=== PATIENT | female | born 1940 | race Caucasian/White ===

== ENCOUNTER 2020-01-16 08:05 | Emergency (ER) | payer MEDICARE, SELFPAY ==
[2020-01-16] VITALS (7 sets, daily range): BP systolic 103–126; BP diastolic 56–74; PULSE 60–89; RESP 14–24; TEMP 36.7; O2SAT 94–97
--- NOTE | ~2020-01-16 | XR_ITS ---
EXAMINATION: XR knee LT min 4V DATE: 01/16/2020 09:21 INDICATION: Left knee pain. TECHNIQUE: 4 views of left knee were obtained. COMPARISON: Left knee radiographs 12/09/2015 FINDINGS: Bone alignment is normal. No fracture. There is severe osteoarthritis of medial compartment and mild osteoarthritis of lateral and patellofemoral compartments. There is heterotopic ossificatio n in the area of medial collateral ligament. No knee joint effusion. IMPRESSION: 1. Severe left knee osteoarthritis. Reviewed, dictated and finalized at location A.
--- NOTE | ~2020-01-16 | XR_ITS ---
EXAMINATION: XR foot RT min 3V DATE: 01/16/2020 09:21 INDICATION: Right foot pain. Fall. TECHNIQUE: 4 views of right foot were obtained. COMPARISON: None. FINDINGS: There is dorsiflexion of the metatarsophalangeal joints and flexion of the interphalangeal joints of the lesser toes. There is moderate hallux valgus. There is hypertrophy of medial aspect of head of first metatarsal. No fracture. There is mild osteoarthritis of first metatarsophalangeal join t and a naviculocuneiform joint. There is an enthesophyte at plantar aspect of calcaneal tuberosity. IMPRESSION: 1. Mild polyarticular osteoarthritis. 2. Moderate hallux valgus. Reviewed, dictated and finalized at location A.
--- NOTE | ~2020-01-16 | XR_ITS ---
EXAMINATION: XR knee RT min 4V DATE: 01/16/2020 09:21 INDICATION: Right knee pain. TECHNIQUE: 4 views of right knee were obtained. COMPARISON: None. FINDINGS: Bone alignment is normal. No fracture. There is mild tricompartmental osteoarthritis. No kn ee joint effusion. IMPRESSION: 1. Mild right knee osteoarthritis. Reviewed, dictated and finalized at location A.
--- NOTE | ~2020-01-16 | XR_ITS ---
EXAMINATION: XR hip RT 2V w AP pelvis DATE: 01/16/2020 09:21 INDICATION: Right hip pain. Fall. TECHNIQUE: An anteroposterior view of the pelvis and 2 views of right hip were obtained. COMPARISON: CT abdomen and pelvis 01/08/2019 FINDINGS: There is dextroscoliosis and moderate spondylosis of lower lumbar spine. No fracture. There is mild osteoarthritis of the hips. Osteitis pubis is noted. Power overlie the pelvis. IMPRESSION: 1. Mild osteoarthritis of the hips. Reviewed, dictated and finalized at location A.
--- NOTE | ~2020-01-16 | CT_ITS ---
EXAMINATION: CT brain wo con INDICATION: Head injury COMPARISON: None TECHNIQUE: Standard unenhanced head CT. The dose-length product (DLP) was 529.67 mGy-cm. The mA was a djusted according to patient size. Iterative reconstruction technique was employed. FINDINGS: There is a 6 mm parafalcine hyperdensity to the right of midline on axial image 36. There i s no acute intraparenchymal hemorrhage. No evidence of mass lesion. No evidence of acute infarction. There is mild periventricular and subcortical hypodensity probably related to small vessel ischemic d isease. There is mild prominence of the sulci and ventricles related to cerebral atrophy. Intracrania l calcified cerebral atherosclerosis is noted. There is no mass effect or midline shift. The orbits a nd soft tissues are unremarkable. There is mild mucosal thickening of the paranasal sinuses. IMPRESSION: 1. 6 mm parafalcine subdural hematoma to the right of midline. These findings were discussed with Dr. Margarita Bro MD in the Emergency Department at 0921 hours on 01/16/2020. 2. Age related findings. Reviewed, dictated and finalized at location A. IMPRESSION: 1. 6 mm parafalcine subdural hematoma to the right of midline. These findings w ere discussed with Dr. Margarita Bro MD in the Emergency Department at 0921 hours on 01/16/2020. 2. Age related findings.
--- NOTE | ~2020-01-16 | XR_ITS ---
EXAMINATION: XR chest 1V DATE: 01/16/2020 09:21 INDICATION: Fall. TECHNIQUE: A single frontal view of the chest was obtained. COMPARISON: Chest single view 03/17/2020 FINDINGS: There is mild atelectasis in left lower lung zone. No pleural effusion or pneumothorax. The heart size is normal. IMPRESSION: 1. Mild atelectasis in left lower lung zone. Reviewed, dictated and finalized at location A.
--- NOTE | 2020-01-16 08:17 | ED.FALL ---
HPI - Fall General Chief Complaint: Fall Stated Complaint: R HIP PAIN S/P FALL Time Seen by Provider: 01/16/20 08:07 Source: patient Mode of arrival: EMS Limitations: no limitations History of Present Illness HPI Narrative: This patient is an 79 year old female who presents for evaluation of right hip pain s/p fall. She fell yesterday afternoon around 1230 am. She states she fell onto grass and a metal drain, and she was unable to get herself up. She has not walked since her fall, and she states she has been crawling around her house since yesterday. She called family this morning and an ambulance brought patient to ER. She complains of right hip pain and right foot pain when she attempts to bear weight. She has no pain at rest but only pain when she moves her leg. She does also report hitting her head yesterday but no LOC. Even though she had no loss of consciousness she reports nausea. She denies taking anticoagulation. complaint: fall Related Data Home Medications Medication Instructions Recorded Confirmed Lasix 01/16/20 losartan 01/16/20 metronidazole 1 applic TOPICAL DAILY 01/16/20 montelukast 10 mg PO DAILY 01/16/20 potassium chloride 10 meq PO DAILY 01/16/20 propranolol 120 mg PO DAILY 01/16/20 trazodone 01/16/20 Allergies Allergy/AdvReac Type Severity Reaction Status Date / Time Cephalosporins Allergy Mild Swelling Verified 01/16/20 08:11 cefaclor Allergy Unknown Unknown Verified 01/16/20 08:11 Penicillins Allergy Unknown Unknown Verified 01/16/20 08:11 Sulfa (Sulfonamide Allergy Unknown Unknown Verified 01/16/20 08:11 Antibiotics) Review of Systems Review of Systems: All systems reviewed & are unremarkable except as noted in HPI and below Constitutional: Constitutional: Denies chills and Denies fever(s) Eyes: Eyes: Reports no additional eye complaints Cardiovascular: Cardiovascular: Denies chest pain and Denies radiating jaw, neck or arm pain Respiratory: Respiratory: Denies cough, Denies dyspnea and Denies wheezing Gastrointestinal: Gastrointestinal: Denies abdominal pain, Reports nausea and Denies vomiting Musculoskeletal: Musculoskeletal: Denies back pain PMF Past Medical History Medical History (Updated 01/16/20 @ 10:00 by Margarita Bro MD) CHF (congestive heart failure) COPD (chronic obstructive pulmonary disease) Hypertension Surgical History Surgical History (Updated 01/16/20 @ 08:18 by Margarita Bro MD) H/O: hysterectomy Family History Family History (Updated 04/22/15 @ 08:50 by DOCTOR UNKNOWN) Other Cerebrovascular accident Social History Social History (Updated 01/16/20 @ 08:18 by Margarita Bro MD) Smoking status: Never smoker Alcohol intake: never Exam Narrative: Exam Narrative: GENERAL: Well-appearing, well-nourished, and in no acute distress. HEAD: Normocephalic, atraumatic EYES: PERRLA and EOMI, conjunctiva clear without discharge EARS: TM's clear bilaterally without erythema or dullness NOSE: Nares clear, no rhinorrhea or epistaxis THROAT:Mucous membranes moist, Oropharynx normal without erythema, exudate, peritonsillar swelling or fluctuance NECK: Supple, without lymphadenopathy or mass, no midline cervical tenderness RESPIRATORY: No respiratory distress, Airway patent, Respirations non-labored, Clear to auscultation without rales, rhonchi or wheeze HEART: Regular rate and rhythm. No murmur heard. Normal peripheral pulses. ABDOMEN: Soft, nontender, nondistended, normal active bowel sounds. No masses. No rebound or guarding, No organomegaly. EXTREMITIES: bilateral pedal and lower leg edema, pain with ROM to right hip, mild tenderness to right hip. TTP left knee, no shortnening SKIN: Warm, dry, normal color without rash NEURO: Alert and oriented x3. CN 2-12 grossly intact. No focal deficits. PSYCH: Normal mood and affect. Course Reevaluation(s) Reevaluation #1: I have discussed with patient th
[2020-01-16 08:39] LABS: Basophils Absolute Auto 0.1 K/mm3 (0.0-0.1); Basophils Percent Auto 0.6 % (0.2-1.2); Eosinophils Absolute Auto 0.3 K/mm3 (0-0.3); Eosinophils Percent Auto 2.1 % (0-4.4); Hematocrit 42.4 % (37.0-47.0); Hemoglobin 13.8 g/dL (12.0-15.0); Immature Granulocyte Absolute 0.05 K/mm3 (0.00-0.031); Immature Granulocyte Percent A 0.4 % (0-0.5); Lymphocytes Percent Auto 5.6 % (18.3-44.2); Mean Corpuscular HGB Conc 32.5 g/dl (32-36); Mean Corpuscular Hemoglobin 29.7 pg (26-34); Mean Corpuscular Volume 91.2 fl (80-100); Mean Platelet Volume 9.2 fl (7.4-10.4); Monocytes Percent Auto 8.2 % (2.6-8.5); Neutrophils Absolute Auto 10.5 K/mm3 (1.3-6.7); Neutrophils Percent Auto 83.1 % (45.5-73.1); Platelet Count Result 213 k/mm3 (150-375); Red Blood Count 4.65 M/mm3 (4.2-5.4); Red Cell Distribution Width 13.7 % (11.5-14.5); White Blood Count 12.6 K/mm3 (4.5-10.0)
[2020-01-16 08:49] LABS: Prothrombin Time 13.3 Seconds (11.1-14.7)
[2020-01-16 08:50] LABS: Alanine Aminotransferase 24 U/L (4-35); Albumin Level 4.4 g/dL (3.5-5.1); Alkaline Phosphatase 121 U/L (38-126); Aspartate Amino Transferase 45 U/L (14-36); Bilirubin,Total 1.9 mg/dL (0.2-1.3); Blood Urea Nitrogen 13 mg/dL (7-17); Calcium 9.7 mg/dL (8.4-10.2); Carbon Dioxide 28 mmol/L (22-30); Chloride 102 mmol/L (98-107); Estimated CRCL calculation 50 ml/min; Estimated Glomerular Filt Rate > 60; Glucose 114 mg/dL (65-105); Partial Thromboplastin Time 34.9 SECONDS (22.3-36.8); Potassium 4.3 mmol/L (3.4-5.0); Sodium 135 mmol/L (137-145)
--- NOTE | 2020-01-16 08:55 | PC.NURSE ---
CALLED LAB AND ADDED ON NEW ORDER CK.
[2020-01-16 09:08] LABS: Creatine Kinase 220 U/L (30-135)
[2020-01-16 09:46] LABS: Add Urine Microscopic? YES; Appearance Urine Clear (Clear); Bacteria Urine 4+ /hpf; Bilirubin Urine Negative (Negative); Blood Urine 2+ (Negative); Color Urine Yellow (Yellow); Glucose Urine UA Negative (Negative); Ketones Urine 1+ mg/dL (Negative); Leukocyte Esterase Ur Negative LEU/UL (Negative); Mucus Urine Rare /lpf; Nitrate Urine Positive (Negative); Protein Urine Negative (Negative); RBC Urine 0-2 /hpf (0-2); Urobilinogen Urine Negative mg/dL (<2.0); WBC Urine 0-3 /hpf
== END 2020-01-16 10:20 | disposition short-term general hospital (02) ==
PROVIDERS: Emergency Provider General Practice; PCP Family Medicine
DX: S06.5X9A Traumatic subdural hemorrhage with loss of consciousness of unspecified duration, initial encounter (principal); I11.0 Hypertensive heart disease with heart failure; I50.9 Heart failure, unspecified; J44.9 Chronic obstructive pulmonary disease, unspecified; M19.90 Unspecified osteoarthritis, unspecified site; W01.0XXA Fall on same level from slipping, tripping and stumbling without subsequent striking against object, initial encounter
CPT/HCPCS: 36415; 51701; 70450; 71045; 73502; 73564; 73630; 80053; 81001; 82550; 85025; 85610; 85730; 99285

== ENCOUNTER 2020-02-02 13:38 | Observation (INO) | payer MEDICARE, SELFPAY ==
[2020-02-02 13:37] VITALS: BP 132/65; PULSE 78; RESP 18; TEMP 36.8; O2SAT 100
--- NOTE | 2020-02-02 13:41 | ED.GIBLEED ---
HPI - GI Bleed General Chief complaint: GI Bleed Stated complaint: Rectal bleed History of Present Illness HPI Narrative: Large amount of bright red blood and clots per rectum starting about an hour before arrival. She reports diarrhea for the past 2 days prior. No dark or grossly bloody stools. She has had a previous GI bleed thought to be due to hemorrhoids. Related Data Home Medications Medication Instructions Recorded Confirmed Lasix 01/16/20 losartan 01/16/20 metronidazole 1 applic TOPICAL DAILY 01/16/20 montelukast 10 mg PO DAILY 01/16/20 potassium chloride 10 meq PO DAILY 01/16/20 propranolol 120 mg PO DAILY 01/16/20 trazodone 01/16/20 Allergies Allergy/AdvReac Type Severity Reaction Status Date / Time Cephalosporins Allergy Mild Swelling Verified 01/16/20 08:11 cefaclor Allergy Unknown Unknown Verified 01/16/20 08:11 Penicillins Allergy Unknown Unknown Verified 01/16/20 08:11 Sulfa (Sulfonamide Allergy Unknown Unknown Verified 01/16/20 08:11 Antibiotics) Review of Systems Review of Systems: All systems reviewed & are unremarkable except as noted in HPI and below Constitutional: Constitutional: Denies chills and Denies fever(s) Cardiovascular: Cardiovascular: Denies chest pain Respiratory: Respiratory: Denies dyspnea Gastrointestinal: Gastrointestinal: Denies abdominal pain, Denies nausea and Denies vomiting Genitourinary: Genitourinary: Denies hematuria Neurologic: Denies dizziness, Denies numbness and Denies weakness PMFSH Past Medical History Medical History CHF (congestive heart failure) COPD (chronic obstructive pulmonary disease) Hypertension Surgical History Surgical History H/O: hysterectomy Family History Family History Other Cerebrovascular accident Social History Social History Smoking status: Never smoker Alcohol intake: never Exam Const: General: healthy appearing, no acute distress and alert Orientation/consciousness: patient oriented x3 HENMT: Head: normal to inspection Neck: Neck: normal visual inspection and no lymphadenopathy Chest: Chest palpation & inspection: no tenderness Resp: Effort & Inspection: normal respiratory effort Auscultation: clear to auscultation bilaterally, no rales, no rhonchi and no wheezes Cardio: Jugular venous distension: no JVD Rate: regular rate Rhythm: regular rhythm Heart sounds: no murmurs GI: Inspection: non-distended GI Palp: Yes Soft to palpation and No Tenderness to palpation present (GI) Other: multiple large external hemorrhoids with minimal active blleding Skin: General skin exam: normal color Neuro: General: patient oriented x3 and moves all extremities Speech: normal speech Extrem: General: no edema Psych: Appearance: well kempt Affect: normal affect MDM - GI Bleed MDM Narrative Medical decision making narrative: Labs stable. Minimal active bleeding. Will admit her for observation and recheck of H/h. Dr. Pandya consulted. Differential Diagnosis Differential diagnosis: Likely hemorrhoids Medical Records Attestation: I reviewed the patient's medical records. Lab Data Attestation: I reviewed the patient's lab results. Imaging Data Attestation: I personally reviewed and interpreted this imaging study as follows: Discharge Plan Discharge Clinical Impression: Hemorrhoids, Acute lower GI bleeding Patient Disposition: Still a Patient Condition: Stable
[2020-02-02 14:01] LABS: Basophils Absolute Auto 0.1 K/mm3 (0.0-0.1); Basophils Percent Auto 0.8 % (0.2-1.2); Eosinophils Absolute Auto 0.2 K/mm3 (0-0.3); Eosinophils Percent Auto 2.4 % (0-4.4); Hematocrit 41.9 % (37.0-47.0); Hemoglobin 13.5 g/dL (12.0-15.0); Immature Granulocyte Absolute 0.04 K/mm3 (0.00-0.031); Immature Granulocyte Percent A 0.4 % (0-0.5); Lymphocytes Absolute Auto 1.08 K/mm3 (0.9-3.2); Lymphocytes Percent Auto 11.8 % (18.3-44.2); Mean Corpuscular HGB Conc 32.2 g/dl (32-36); Mean Corpuscular Hemoglobin 29.2 pg (26-34); Mean Corpuscular Volume 90.7 fl (80-100); Mean Platelet Volume 9.3 fl (7.4-10.4); Monocytes Absolute Auto 0.8 K/mm3 (0.1-0.6); Neutrophils Absolute Auto 6.9 K/mm3 (1.3-6.7); Neutrophils Percent Auto 75.6 % (45.5-73.1); Platelet Count Result 311 k/mm3 (150-375); Red Blood Count 4.62 M/mm3 (4.2-5.4); Red Cell Distribution Width 13.6 % (11.5-14.5); White Blood Count 9.2 K/mm3 (4.5-10.0)
[2020-02-02 14:07] LABS: Partial Thromboplastin Time 30.9 SECONDS (22.3-36.8); Prothrombin Time 12.8 Seconds (11.1-14.7)
[2020-02-02 14:10] LABS: Alanine Aminotransferase 16 U/L (4-35); Albumin Level 4.1 g/dL (3.5-5.1); Alkaline Phosphatase 194 U/L (38-126); Aspartate Amino Transferase 31 U/L (14-36); Bilirubin,Total 0.5 mg/dL (0.2-1.3); Blood Urea Nitrogen 19 mg/dL (7-17); Calcium 9.3 mg/dL (8.4-10.2); Carbon Dioxide 28 mmol/L (22-30); Chloride 103 mmol/L (98-107); Estimated CRCL calculation 50 ml/min; Estimated Glomerular Filt Rate > 60; Glucose 114 mg/dL (65-105); Sodium 138 mmol/L (137-145)
[2020-02-02 14:58] VITALS: BP 100/43; PULSE 85; RESP 15; O2SAT 100
[2020-02-02 16:12] VITALS: BP 103/38; PULSE 71; RESP 17; TEMP 36.4; O2SAT 98
--- NOTE | 2020-02-02 16:40 | ADMGEN ---
This patient, Dionne Flores, was admitted to Medical Room 342-01. Patient/family oriented to hospital policies and general routines including ID bracelet, bed and alarms, visiting hours, pain management, procedures, bathroom and other care routines, personal items, smoking policy, room service/diet, and visiting hours. Valuables list has been completed. Information on how to activate the Rapid Response Team has been discussed. Patient/Family are encouraged to report perceived risks to care and to ask questions if they do not understand what they are told or what they should do.
[2020-02-02 16:46] VITALS: BMI 33.7
[2020-02-02 16:48] VITALS: BP 151/62; PULSE 74; RESP 12; TEMP 36.6; O2SAT 100
[2020-02-02 17:04] LABS: Hematocrit 40.5 % (37.0-47.0)
[2020-02-02] MEDS: LACTATED RINGERS 1,000 ML 125 ML IV CONT (17:17)
--- NOTE | 2020-02-02 18:10 | PM.IMHP ---
H&P: HPI History of Present Illness Chief complaint: lower gi bleed Narrative: Dionne Flores is a 79 year old female whom I have had the pleasure of meeting on 09/10/2018 which she also had bloody stools. At that time the patient was found to have bleeding hemorrhoids and was discharged to home without any intervention. The patient has had multiple colon polyps removed and had a right hemo colectomy approximately 3 years ago for mass which was found to be benign. She also had a diagnosis of lymphoma and was told that she is in remission. Patient's last EGD and colonoscopy was performed by Dr. Greenwood at [facility] December 23, 2018. Patient does occasionally have problems with bleeding hemorrhoids. She has seen Dr. Canales in the past. She is a former patient of Dr. Zuniga and removed herself from his services. Patient's H&H is 13.5 and 41.9. Her H&H on 01/16/2020 was noted to be 13.8 and 42.4. Patient's repeat H&H today was 13.0 and 40.5. Patient woke up this morning with a large amount of bright red blood in her stool which occurred approximately 1 hour prior to arrival in the emergency room. She stated prior to that she had diarrhea for about 2 days but did notice any blood until today. Patient has not taking anything for her hemorrhoids. Patient denies any shortness of breath or dizziness. Patient stated that she feels fine now. Dr. Pandya has been consulted. Patient was given IV fluids. Serial H&Hs have been ordered. Patient is being admitted to medical floor for lower GI bleed. Date of service 02/02/2020 Review of Systems Review of Systems: All systems reviewed & are unremarkable except as noted in HPI and below Constitutional: Constitutional: Reports as per HPI and Reports no additional constitutional complaints Eyes: Eyes: Reports as per HPI and Reports no additional eye complaints ENT: Reports system reviewed and no additional complaints, except as documented and Reports Normal hearing present Cardiovascular: Cardiovascular: Reports no additional cardiovascular complaints Respiratory: Respiratory: Reports no additional respiratory complaints and Reports no additional respiratory complaints Gastrointestinal: Gastrointestinal: Reports as per HPI and Reports no additional gastrointestinal complaints Musculoskeletal: Musculoskeletal: Reports no additional musculoskeletal complaints Integumentary/Breasts: Skin/Breast: Reports system reviewed and no additional complaints, except as docu and Reports as per HPI Neurologic: Reports system reviewed and no additional complaints, except as documented, Reports as per HPI and Reports Normal hearing present Psychiatric: Psychiatric: Reports no additional psychiatric complaints and Reports as per HPI Endocrine: Endocrine: Reports no additional endocrine complaints Hematologic/Lymphatic: Hematologic/Lymphatic: Reports no additional hematologic/lymphatic complaints Allergic/Immunologic: Allergic/Immunologic: Reports no additional allergic/immunologic complaints [facility] Past Medical History Medical History (Updated 02/02/20 @ 18:35 by Radha Harp NP) Abnormal colonoscopy May of last year Anxiety and depression CHF (congestive heart failure) COPD (chronic obstructive pulmonary disease) Hypertension Lymphoma Now reported as being in remission Osteoporosis Rosacea Surgical History Surgical History (Updated 02/02/20 @ 18:24 by Radha Harp NP) H/O bilateral cataract extraction 1 in 2008 and 2nd 1 in 2010 H/O cardiac catheterization H/O lumpectomy H/O rectal polypectomy H/O right hemicolectomy H/O: hysterectomy 1987 History of ear surgery Right here plastic surgery due to a pressure area on the top of her right ear. History of esophagogastroduodenoscopy (EGD) Approximately 1 year Hx of cholecystectomy 2004 Family History Family History (Updated 02/02/20 @ 18:31 by Radha Harp NP) Father Hypertension Cerebrovascular accident Diabetes oralia
[2020-02-02 21:11] VITALS: BP 108/60; PULSE 77; RESP 16; TEMP 36.3; O2SAT 97
[2020-02-02] MEDS: traZODone HCL 50 MG TABLET PO (21:15)
[2020-02-02 23:03] LABS: Hematocrit 35.7 % (37.0-47.0); Hemoglobin 11.7 g/dL (12.0-15.0)
[2020-02-03] VITALS (7 sets, daily range): BP systolic 113–128; BP diastolic 52–65; PULSE 65–85; RESP 14–16; TEMP 36.2–36.9; O2SAT 96–100
[2020-02-03] MEDS: LACTATED RINGERS 1,000 ML 125 ML IV CONT ×2 (01:32→10:11)
[2020-02-03 03:16] LABS: Hematocrit 35.4 % (37.0-47.0); Hemoglobin 11.3 g/dL (12.0-15.0)
[2020-02-03 03:31] LABS: Alanine Aminotransferase 13 U/L (4-35); Albumin Level 3.1 g/dL (3.5-5.1); Alkaline Phosphatase 147 U/L (38-126); Aspartate Amino Transferase 23 U/L (14-36); Bilirubin,Total 0.6 mg/dL (0.2-1.3); Blood Urea Nitrogen 13 mg/dL (7-17); CRP 1.6 mg/dL (<1.0); Calcium 8.8 mg/dL (8.4-10.2); Carbon Dioxide 27 mmol/L (22-30); Chloride 105 mmol/L (98-107); Estimated CRCL calculation 57 ml/min; Estimated Glomerular Filt Rate > 60; Glucose 94 mg/dL (65-105); Magnesium 1.8 mg/dL (1.6-2.3); Potassium 3.4 mmol/L (3.4-5.0); Sodium 138 mmol/L (137-145)
[2020-02-03] MEDS: PROPRANOLOL HCL 20 MG TABLET 60 MG PO ×2 (08:54→21:16)
[2020-02-03] MEDS: MONTELUKAST SODIUM 10 MG TABLET PO (08:55)
[2020-02-03] MEDS: MULTIVITAMINS THERAPEUTIC TAB (*BKC) 1 TABLET PO (08:55)
[2020-02-03] MEDS: LOSARTAN POTASSIUM 25 MG TABLET PO (08:55)
[2020-02-03] MEDS: FUROSEMIDE 20 MG TABLET PO (08:55)
--- NOTE | 2020-02-03 10:30 | PM.IMPN ---
Progress Note: A&P Assessment and Plan (1) Acute lower GI bleeding: Code(s): K92.2 - Gastrointestinal hemorrhage, unspecified Status: Acute Assessment and Plan: Patient states her bleeding has stopped today; she did not notice blood in stool/melena this morning. H&H dropped to 11.3/35.4 today. GI consulted and appreciate input. She has had a history of internal & external hemorrhoids with apparent bleed last year. She is not on any a/c at this time. VSS Continue to monitor Await further input from GI Monitor H&H again this morning and likely tomorrow if she stays (2) Anxiety and depression: Code(s): F41.9 - Anxiety disorder, unspecified; F32.9 - Major depressive disorder, single episode, unspecified Status: Chronic Assessment and Plan: No acute issues Continue trazodone. (3) Rosacea: Code(s): L71.9 - Rosacea, unspecified Status: Chronic Assessment and Plan: Not not currently having any issues. She has been on Flagyl in the past. (4) COPD (chronic obstructive pulmonary disease): Code(s): J44.9 - Chronic obstructive pulmonary disease, unspecified Status: Chronic Assessment and Plan: Not currently having any issues. Continue with Singulair. (5) CHF (congestive heart failure): Code(s): I50.9 - Heart failure, unspecified Status: Chronic Assessment and Plan: No acute issues. Appears euvolemic Continue with Lasix and losartan. Stop IVF (6) Lymphoma: Code(s): C85.90 - Non-Hodgkin lymphoma, unspecified, unspecified site Status: Acute Assessment and Plan: Reported as being in remission Subjective Date/time seen: 02/03/20 10:30 Interval history: Patient is a 79 yo F with history of CHF, COPD, HTN, and reported previous GI bleed thought to be due to hemorrhoids who is here for evaluation for BRBPR. Patient states her bleeding has stopped. She had a BM today and had not noticed any blood/black stools this morning. No other signs/symptoms of bleeding. She has no other complaints. Denies f/c/s,headaches, dizziness/lightheadedness particularly with standing/ambulating, changes in v/h, cp/palpitations, sob/cough, n/v/d/c, abd pain, dysuria, hematuria, cloudy urine, calf pain/swelling. Review of Systems Review of Systems: All systems reviewed & are unremarkable except as noted in HPI and below Exam Narrative: Exam Narrative: Patient sitting upright in chair at time of visit Const: General: cooperative, comfortable, no acute distress, well developed, alert and ill appearing chronically Nutritional Appearance: well nourished and obese Orientation/consciousness: patient oriented x3 HENMT: Head: normocephalic and atraumatic General nose exam: Normal nares present Face and sinus: face symmetric Mouth: Yes moist mucous membranes Eyes: General: appearance normal, both eyes and all related structures EOM: EOMs intact bilaterally Neck: Neck: trachea midline and supple Resp: Effort & Inspection: normal respiratory effort Auscultation: clear to auscultation bilaterally Cardio: Rate: regular rate Rhythm: regular rhythm GI: Inspection: non-distended and obesity GI Palp: No abdominal tenderness and Yes Soft to palpation Auscultation: other (BS present) Skin: General skin exam: normal color and no rashes or lesions noted Neuro: General: patient oriented x3, moves all extremities and no focal motor deficits Speech: normal speech Extrem: Right lower extremity: edema Left lower extremity: edema Other: NTTP b/l calves Psych: Mental Status: mental status grossly normal Affect: normal affect Objective Data Vital Signs Vital Signs: Last Vital Signs Temp 97.2 F L 02/03/20 04:49
--- NOTE | 2020-02-03 11:17 | WPDGICN ---
Assessment and Plan Assessment and plan (1) Acute lower GI bleeding: Code(s): K92.2 - Gastrointestinal hemorrhage, unspecified <Belinda Barber APRN - Last Filed: 02/03/20 14:17> Status: Acute <Belinda Barber APRN - Last Filed: 02/03/20 14:17> Assessment and Plan: This could be secondary to hemorrhoids but due to patients abdominal cramping prior to blood in stools certainly would consider ischemic colitis? Also can't exclude malignancy Patient hgb has dropped to 11 but has had no further GI bleed. Will continue to monitor H&H CT abd/pelvis Advance diet Did discuss with patient that she should have repeat colonoscopy if these symptoms continue to persist Request records from last EGD and Colonoscopy <Belinda Barber APRN - Last Filed: 02/03/20 14:17> (2) Weight loss: Code(s): R63.4 - Abnormal weight loss <Belinda Barber APRN - Last Filed: 02/03/20 14:17> Status: Acute <Belinda Barber APRN - Last Filed: 02/03/20 14:17> Assessment and Plan: Possible concern for underlying malignancy, this should be ruled out <Belinda Barber APRN - Last Filed: 02/03/20 14:17> (3) History of right hemicolectomy: Code(s): Z90.49 - Acquired absence of other specified parts of digestive tract <Belinda Barber APRN - Last Filed: 02/03/20 14:17> Status: Acute <Belinda Barber APRN - Last Filed: 02/03/20 14:17> Additional Plan I have personally reviewed the chart and examined the patient. I agree with the above note. Abdomen soft/NT. Hematochezia, abdominal pain and weight loss: - Concern for ischemic colitis, neoplasm - Patient has h/o right td-colectomy for unknown reasons - Symptoms improved - CT ordered - H+H stable (hGB 13->11) - [place] [place] [phone] <Pola Pandya MD - Last Filed: 02/03/20 14:40> GI Consult Note Consult date/time: 02/03/20 11:17 <Belinda Barber APRN - Last Filed: 02/03/20 14:17> HPI: Dionne Flores is a 79 year old female presented to ED yesterday from [facility] after she had abdominal cramping, urge to have a BM but instead passed bright red blood. She has had similar episodes in the past and was always told it was related to hemorrhoids. She does have personal hx of right hemicolectomy (2.5 years ago)secondary to colon mass lymphoma?. She says her last colonoscopy was around 2 years ago and was told she would never have to repeat it. SHe is unsure who perfromed this. She does report gradual weight loss but unsure the exact amount but says her clothes are hanging off of her. She denies any melena or rectal pain. She does report early satiety and decreased appetite. She has diarrhea at baseline she says around 2- per day and will take imodium almost daily with limited relief. She says she has had EGD before around 1.5 years ago but again unsure who did this. Denies family hx of GI maligancies. Denies fevers or chills. hgb on admission was 13 and has dropped to 11 but patient denies any further rectal bleeding or abdomninal pain. She is ready to eat and ready to be discharged. <Belinda Barber APRN - Last Filed: 02/03/20 14:17> Review of Systems Review of Systems: All systems reviewed & are unremarkable except as noted in HPI and below <Belinda Barber APRN - Last Filed: 02/03/20 14:17> Gastrointestinal: Gastrointestinal: Reports as per HPI <Belinda Barber APRN - Last Filed: 02/03/20 14:17> [facility] Past Medical History Medical History: Medical History (Updated 02/03/20 @ 11:23 by Belinda Barber APRN) Abnormal colonoscopy November of last year Anxiety and depression CHF (congestive heart failure) COPD (chronic obstructive pulmonary disease) Hypertension Lymphoma Now reported as being in remission Osteoporosis Rosacea <Belinda Barber APRN - Last Filed: 02/03/20 14:17> Surgical History Surgical History: Surgical History (Updated 02/03/20 @ 11:23 b
[2020-02-03 13:19] LABS: Hematocrit 42.8 % (37.0-47.0); Hemoglobin 13.7 g/dL (12.0-15.0)
[2020-02-03 14:12] LABS: IFOB Positive Control Positive; Immunochemical Fecal Occult Bl Positive (N)
--- NOTE | 2020-02-03 16:01 | PC.NURSE ---
I took CT scan for pelvis and lumbar questionairre signature paper to patient and she answered, I dont know to all the questions. She then said to call her son. I spoke to her son Maximilian Flores and he voiced that his mom does not want anymore test. I went into the patient s room again and she voiced that she does not want the CT scan. I notified Belinda Barber from that patient does not want the CT scan. No new orders. Notified Javier Olivier, hospitalist of the same. No new orders.
[2020-02-03] MEDS: POTASSIUM CHLORIDE 20 MEQ TABLET 40 MEQ PO (17:56)
[2020-02-03] MEDS: traZODone HCL 50 MG TABLET PO (21:16)
[2020-02-04] VITALS (7 sets, daily range): BP systolic 121–147; BP diastolic 57–70; PULSE 59–81; RESP 16–18; TEMP 35.6–36.7; O2SAT 96–98
[2020-02-04 05:22] LABS: Hematocrit 39.8 % (37.0-47.0); Hemoglobin 12.8 g/dL (12.0-15.0)
[2020-02-04 05:37] LABS: Blood Urea Nitrogen 11 mg/dL (7-17); Calcium 9.3 mg/dL (8.4-10.2); Carbon Dioxide 26 mmol/L (22-30); Chloride 106 mmol/L (98-107); Estimated CRCL calculation 57 ml/min; Estimated Glomerular Filt Rate > 60; Glucose 97 mg/dL (65-105); Sodium 137 mmol/L (137-145)
[2020-02-04] MEDS: LOSARTAN POTASSIUM 25 MG TABLET PO (09:00)
[2020-02-04] MEDS: FUROSEMIDE 20 MG TABLET PO (09:00)
[2020-02-04] MEDS: MONTELUKAST SODIUM 10 MG TABLET PO (09:00)
[2020-02-04] MEDS: MULTIVITAMINS THERAPEUTIC TAB (*BKC) 1 TABLET PO (09:00)
[2020-02-04] MEDS: PROPRANOLOL HCL 20 MG TABLET 60 MG PO ×2 (09:00→21:37)
--- NOTE | 2020-02-04 10:12 | PM.DS ---
DS: Admitting Diagnosis Admitting Diagnosis Admitting Diagnosis: Gastrointestinal hemorrhage, unspecified DS: Discharge Diagnosis Discharge Diagnosis (1) Acute lower GI bleeding: Code(s): K92.2 - Gastrointestinal hemorrhage, unspecified Status: Acute Assessment and Plan: Patient states her bleeding stopped yesterday; she did not notice blood in stool/melena yesterday and again this morning. H&H stable at 12.8/39.8 today. GI consulted and appreciate input. She has had a history of internal & external hemorrhoids with apparent bleed last year. She did notice abd cramping with her bleeding episode; CT abd/pelv ordered by GI service, but patient refused; no recurrent pain/cramping. She is not on any a/c at this time. VSS/afebrile Will do H&H in 1 week Okay for discharge from GI standpoint F/u with her established GI specialist or Dr. Pandya; will likely need another colonoscopy in future given her past medical history (2) Anxiety and depression: Code(s): F41.9 - Anxiety disorder, unspecified; F32.9 - Major depressive disorder, single episode, unspecified Status: Chronic Assessment and Plan: No acute issues Continue trazodone. (3) Rosacea: Code(s): L71.9 - Rosacea, unspecified Status: Chronic Assessment and Plan: Not not currently having any issues. She has been on Flagyl in the past. (4) COPD (chronic obstructive pulmonary disease): Code(s): J44.9 - Chronic obstructive pulmonary disease, unspecified Status: Chronic Assessment and Plan: Not currently having any issues. Continue with Singulair. (5) CHF (congestive heart failure): Code(s): I50.9 - Heart failure, unspecified Status: Chronic Assessment and Plan: No acute issues. Appears euvolemic Continue with Lasix and losartan. (6) Lymphoma: Code(s): C85.90 - Non-Hodgkin lymphoma, unspecified, unspecified site Status: Acute Assessment and Plan: Reported as being in remission f/u with oncologist DS: Summary Time Spent with Patient Time attestation: Total time spent providing and/or coordinating discharge services: Exam Narrative: Exam Narrative: Patient sitting upright in bed at time of visit Const: General: cooperative, comfortable, no acute distress, well developed, alert and ill appearing chronically Nutritional Appearance: well nourished and obese Orientation/consciousness: patient oriented x3 HENMT: Head: normocephalic and atraumatic General nose exam: Normal nares present Face and sinus: face symmetric Mouth: Yes moist mucous membranes Eyes: General: appearance normal, both eyes and all related structures EOM: EOMs intact bilaterally Neck: Neck: trachea midline and supple Resp: Effort & Inspection: normal respiratory effort Auscultation: clear to auscultation bilaterally Cardio: Rate: regular rate Rhythm: regular rhythm Heart sounds: no murmurs GI: Inspection: non-distended and obesity GI Palp: No abdominal tenderness and Yes Soft to palpation Auscultation: normal bowel sounds and normoactive bowel sounds Skin: General skin exam: normal color and no rashes or lesions noted Neuro: General: patient oriented x3, moves all extremities and no focal motor deficits Speech: normal speech Extrem: Right lower extremity: edema Left lower extremity: edema Other: NTTP b/l calves Psych: Mental Status: mental status grossly normal Affect: normal affect DS: Data Data Completed and Pending Labs on day of discharge: Labs from last 24 hours 02/04/20 02/04/20 02/03/20 04:49 04:49 13:06 Hgb 12.8 13.7 Hct 39.8 42.8 Sodium 137 Potassium 4.0 Chloride 106 Carbon Dioxide 26 BUN 11 Creat
--- NOTE | 2020-02-04 10:53 | WPDGIPROGNO ---
Progress Note: A&P Assessment and Plan (1) Acute lower GI bleeding: Code(s): K92.2 - Gastrointestinal hemorrhage, unspecified <Belinda Barber APRN - Last Filed: 02/04/20 10:56> Status: Acute <Belinda Barber APRN - Last Filed: 02/04/20 10:56> Assessment and Plan: This could be secondary to hemorrhoids but due to patients abdominal cramping prior to blood in stools certainly would consider ischemic colitis? Also can't exclude malignancy -Patient declined CT abd/pelvis -Symptoms have improved with increase in hemoglobin to 12.8 this AM -Did discuss with patient that she should have repeat colonoscopy if these symptoms continue to persist-She was given Dr. Pandya office number Request records from last EGD and Colonoscopy <Belinda Barber APRN - Last Filed: 02/04/20 10:56> (2) Weight loss: Code(s): R63.4 - Abnormal weight loss <Belinda Barber APRN - Last Filed: 02/04/20 10:56> Status: Acute <Belinda Barber APRN - Last Filed: 02/04/20 10:56> Assessment and Plan: Possible concern for underlying malignancy, this should be ruled out <Belinda Barber APRN - Last Filed: 02/04/20 10:56> (3) History of right hemicolectomy: Code(s): Z90.49 - Acquired absence of other specified parts of digestive tract <Belinda Barber APRN - Last Filed: 02/04/20 10:56> Status: Acute <Belinda Barber APRN - Last Filed: 02/04/20 10:56> Additional Plan I have personally reviewed the chart and examined the patient. I agree with the above note. Abdomen soft/NT. Hematochezia, abdominal pain and weight loss: - Concern for ischemic colitis, neoplasm - Patient has h/o right td-colectomy for unknown reasons - Symptoms improved - CT ordered - H+H stable (hGB 13->11) - oBSERVE AB Desi [phone] <Belinda Barber APRN - Last Filed: 02/04/20 10:56> I have personally reviewed the chart and examined the patient. I agree with the above note. Abdomen soft/NT. Hgb 13 Hematochezia, abdominal pain and weight loss: - Concern for ischemic colitis, neoplasm - Patient has h/o right td-colectomy for unknown reasons - Symptoms improved - No active bleed - CT refused - H+H stable (hGB 13->11->13) - Observe Thanks, ABG [phone] <Pola Pandya MD - Last Filed: 02/04/20 19:31> Subjective Date/time seen: 02/04/20 10:53 Patient is no longer having bloody stools. She does report BM with no blood. She denies abdominal pain, nausea, vomiting. Hgb has improved to 12.8. <Belinda Barber APRN - Last Filed: 02/04/20 10:56> Review of Systems Review of Systems: All systems reviewed & are unremarkable except as noted in HPI and below <Belinda Barber APRN - Last Filed: 02/04/20 10:56> Gastrointestinal: Gastrointestinal: Reports as per HPI <Belinda Barber APRN - Last Filed: 02/04/20 10:56> Exam Const: General: cooperative, healthy appearing, comfortable, no acute distress, alert and awake <Belinda Barber APRN - Last Filed: 02/04/20 10:56> Orientation/consciousness: patient oriented x3 <Belinda Barber APRN - Last Filed: 02/04/20 10:56> Resp: Effort & Inspection: normal respiratory effort <Belinda Barber APRN - Last Filed: 02/04/20 10:56> Auscultation: clear to auscultation bilaterally <Belinda Barber APRN - Last Filed: 02/04/20 10:56> GI: Inspection: normal to inspection <Belinda Barber APRN - Last Filed: 02/04/20 10:56> Auscultation: normal bowel sounds <Belinda Barber APRN - Last Filed: 02/04/20 10:56> Rectal Exam: deferred <Belinda Barber APRN - Last Filed: 02/04/20 10:56> Skin: General skin exam: normal color <Belinda Barber APRN - Last Filed: 02/04/20 10:56> Neuro: General: patient oriented x3 and moves all extremities <Belinda Barber APRN - Last Filed: 02/04/20 10:56> Speech: normal speech <Belinda Barber APRN - Last Filed: 02/04/20 10:56> Psych: Appearance: grossly normal <Ran
--- NOTE | 2020-02-04 14:58 | PM.IMPN ---
Progress Note: A&P Assessment and Plan (1) Acute lower GI bleeding: Code(s): K92.2 - Gastrointestinal hemorrhage, unspecified Status: Acute Assessment and Plan: Patient states her bleeding stopped yesterday; she did not notice blood in stool/melena yesterday and again this morning. H&H stable at 12.8/39.8 today. GI consulted and appreciate input. She has had a history of internal & external hemorrhoids with apparent bleed last year. She did notice abd cramping with her bleeding episode; CT abd/pelv ordered by GI service, but patient refused; no recurrent pain/cramping. She is not on any a/c at this time. VSS/afebrile Will do H&H in 1 week Okay for discharge from GI standpoint F/u with her established GI specialist or Dr. Pandya; will likely need another colonoscopy in future given her past medical history (2) Anxiety and depression: Code(s): F41.9 - Anxiety disorder, unspecified; F32.9 - Major depressive disorder, single episode, unspecified Status: Chronic Assessment and Plan: No acute issues Continue trazodone. (3) Rosacea: Code(s): L71.9 - Rosacea, unspecified Status: Chronic Assessment and Plan: Not not currently having any issues. She has been on Flagyl in the past. (4) COPD (chronic obstructive pulmonary disease): Code(s): J44.9 - Chronic obstructive pulmonary disease, unspecified Status: Chronic Assessment and Plan: Not currently having any issues. Continue with Singulair. (5) CHF (congestive heart failure): Code(s): I50.9 - Heart failure, unspecified Status: Chronic Assessment and Plan: No acute issues. Appears euvolemic Continue with Lasix and losartan. (6) Lymphoma: Code(s): C85.90 - Non-Hodgkin lymphoma, unspecified, unspecified site Status: Acute Assessment and Plan: Reported as being in remission f/u with oncologist (7) Discharge planning issues: Code(s): Z02.9 - Encounter for administrative examinations, unspecified Status: Acute Assessment and Plan: Patient unable to return to [facility] due to insurance/insurance auth issues per CC. CC following and at this moment patient cannot be discharged Discharge today or tomorrow if able to return to SNF vs home with HH Will await further instructions from CC Subjective Date/time seen: 02/04/20 14:58 Interval history: Patient is a 79 yo F with history of CHF, COPD, HTN, and reported previous GI bleed thought to be due to hemorrhoids who is here for evaluation for BRBPR. Patient states her bleeding has stopped. She had a BM again today and had not noticed any blood/black stools this morning. No other signs/symptoms of bleeding. She has no other complaints. Denies f/c/s, headaches, dizziness/lightheadedness particularly with standing/ambulating, changes in v/h, cp/palpitations, sob/cough, n/v/d/c, abd pain, dysuria, hematuria, cloudy urine, calf pain/swelling. Review of Systems Review of Systems: All systems reviewed & are unremarkable except as noted in HPI and below Exam Narrative: Exam Narrative: Patient sitting upright in bed at time of visit Const: General: cooperative, comfortable, no acute distress, well developed, alert and ill appearing chronically Nutritional Appearance: well nourished and obese Orientation/consciousness: patient oriented x3 HENMT: Head: normocephalic and atraumatic General nose exam: Normal nares present Face and sinus: face symmetric Mouth: Yes moist mucous membranes Eyes: General: appearance normal, both eyes and all related structures EOM: EOMs intact bilaterally Neck: Neck: trachea midline and supple Resp: Effort &
[2020-02-04] MEDS: traZODone HCL 50 MG TABLET PO (21:37)
[2020-02-05 06:00] VITALS: BP 130/62; PULSE 66; RESP 16; TEMP 36.2; O2SAT 96
--- NOTE | 2020-02-05 08:28 | WPDGIPROGNO ---
Progress Note: A&P Assessment and Plan (1) Acute lower GI bleeding: Code(s): K92.2 - Gastrointestinal hemorrhage, unspecified Status: Acute Assessment and Plan: This could be secondary to hemorrhoids but due to patients abdominal cramping prior to blood in stools certainly would consider ischemic colitis? Also can't exclude malignancy -Patient declined CT abd/pelvis -Rectal bleeding has improved - no hgb has been drawn as of 8:29 this morning to review. Will collect CBC -Did discuss with patient that she should have repeat colonoscopy if these symptoms continue to persist-She was given Dr. Pandya office number (2) Weight loss: Code(s): R63.4 - Abnormal weight loss Status: Acute Assessment and Plan: Possible concern for underlying malignancy, this should be ruled out (3) History of right hemicolectomy: Code(s): Z90.49 - Acquired absence of other specified parts of digestive tract Status: Acute Subjective Date/time seen: 02/05/20 08:28 Patient denies any further bright red rectal bleeding. She denies abdominal pain, nausea or vomiting. She is tolerating a regular diet at this time. No hgb as of them AM 02/05/2020 at 0829 to review Exam Const: General: cooperative, healthy appearing, comfortable, no acute distress, alert and awake Orientation/consciousness: patient oriented x3 GI: Inspection: normal to inspection Auscultation: normal bowel sounds Rectal Exam: deferred Objective Data Vital Signs Vital Signs: Vital Signs - 24 hr 02/04/20 09:00 02/04/20 14:00 02/04/20 20:00 Temperature 35.6 C L Pulse Rate 81 59 L 73 Respiratory Rate 18 18 Blood Pressure 121/70 Pulse Oximetry 96 98 02/04/20 21:37 02/04/20 21:56 02/05/20 06:00 Temperature 36.0 C L 36.2 C L Pulse Rate 59 L 73 66 Respiratory Rate 18 16 Blood Pressure 147/60 H 130/62 Pulse Oximetry 98 96 Intake/Output Intake/Output: Intake & Output 02/02/20 02/03/20 02/04/20 02/05/20 23:59 23:59 23:59 23:59 Intake Total 0 2218 1020 150 Output Total 1950 400 675 Balance 0 268 620 -525 Meds/Results Medications: Active Medications Generic Name Dose Route Start Last Admin Trade Name Sesar PRN Reason Stop Dose Admin Furosemide 20 mg 02/03/20 09:00 02/04/20 09:00 Lasix Tablet PO 20 mg DAILY KI Administration Losartan Potassium 25 mg 02/03/20 09:00 02/04/20 09:00 Cozaar PO 25 mg DAILY KI Administration Montelukast Sodium 10 mg 02/03/20 09:00 02/04/20 09:00 Singulair PO 10 mg DAILY KI Administration Multivitamins Therapeutic 1 tablet 02/03/20 09:00 02/04/20 09:00 Multivitamins Therapeutic(*Bkc PO 1 tablet DAILY KI Administration Propranolol HCl 60 mg 02/03/20 09:00 02/04/20 21:37 Inderal PO 60 mg Q12HR KI Administration Trazodone HCl 50 mg 02/02/20 21:00 02/04/20 21:37 Desyrel PO 50 mg HS KI Administration
[2020-02-05 09:10] LABS: Basophils Absolute Auto 0.1 K/mm3 (0.0-0.1); Basophils Percent Auto 0.9 % (0.2-1.2); Eosinophils Absolute Auto 0.2 K/mm3 (0-0.3); Eosinophils Percent Auto 2.4 % (0-4.4); Hematocrit 45.9 % (37.0-47.0); Hemoglobin 14.7 g/dL (12.0-15.0); Immature Granulocyte Absolute 0.04 K/mm3 (0.00-0.031); Immature Granulocyte Percent A 0.4 % (0-0.5); Lymphocytes Absolute Auto 0.95 K/mm3 (0.9-3.2); Lymphocytes Percent Auto 9.6 % (18.3-44.2); Mean Corpuscular Hemoglobin 29.2 pg (26-34); Mean Corpuscular Volume 91.1 fl (80-100); Mean Platelet Volume 9.4 fl (7.4-10.4); Monocytes Absolute Auto 0.8 K/mm3 (0.1-0.6); Monocytes Percent Auto 7.8 % (2.6-8.5); Neutrophils Absolute Auto 7.8 K/mm3 (1.3-6.7); Neutrophils Percent Auto 78.9 % (45.5-73.1); Platelet Count Result 282 k/mm3 (150-375); Red Blood Count 5.04 M/mm3 (4.2-5.4); Red Cell Distribution Width 13.6 % (11.5-14.5); White Blood Count 9.9 K/mm3 (4.5-10.0)
[2020-02-05 09:19] VITALS: PULSE 67
[2020-02-05] MEDS: FUROSEMIDE 20 MG TABLET PO (09:19)
[2020-02-05] MEDS: PROPRANOLOL HCL 20 MG TABLET 60 MG PO (09:19)
[2020-02-05] MEDS: MONTELUKAST SODIUM 10 MG TABLET PO (09:20)
[2020-02-05] MEDS: LOSARTAN POTASSIUM 25 MG TABLET PO (09:20)
[2020-02-05] MEDS: MULTIVITAMINS THERAPEUTIC TAB (*BKC) 1 TABLET PO (09:20)
--- NOTE | 2020-02-05 13:25 | PM.IMPN ---
Progress Note: A&P Assessment and Plan (1) Acute lower GI bleeding: Code(s): K92.2 - Gastrointestinal hemorrhage, unspecified Status: Acute Assessment and Plan: Patient states her bleeding stopped yesterday; she did not notice blood in stool/melena yesterday and again this morning. H&H stable at 14.7/45.9 today. GI consulted and appreciate input. She has had a history of internal & external hemorrhoids with apparent bleed last year. She did notice abd cramping with her bleeding episode; CT abd/pelv ordered by GI service, but patient refused; no recurrent pain/cramping. She is not on any a/c at this time. VSS/afebrile Will do H&H in 1 week Okay for discharge from GI standpoint F/u with her established GI specialist or Dr. Pandya; will likely need another colonoscopy in future given her past medical history Medically stable for discharge; awaiting placement - see below (2) Anxiety and depression: Code(s): F41.9 - Anxiety disorder, unspecified; F32.9 - Major depressive disorder, single episode, unspecified Status: Chronic Assessment and Plan: No acute issues Continue trazodone. (3) Rosacea: Code(s): L71.9 - Rosacea, unspecified Status: Chronic Assessment and Plan: Not not currently having any issues. She has been on Flagyl in the past. (4) COPD (chronic obstructive pulmonary disease): Code(s): J44.9 - Chronic obstructive pulmonary disease, unspecified Status: Chronic Assessment and Plan: Not currently having any issues. Continue with Singulair. (5) CHF (congestive heart failure): Code(s): I50.9 - Heart failure, unspecified Status: Chronic Assessment and Plan: No acute issues. Appears euvolemic Continue with Lasix and losartan. (6) Lymphoma: Code(s): C85.90 - Non-Hodgkin lymphoma, unspecified, unspecified site Status: Acute Assessment and Plan: Reported as being in remission f/u with oncologist (7) Discharge planning issues: Code(s): Z02.9 - Encounter for administrative examinations, unspecified Status: Acute Assessment and Plan: Patient unable to return to [facility] due to insurance/insurance auth issues per CC. CC following and at this moment patient cannot be discharged Discharge today or tomorrow if able to return to SNF vs home with HH Will await further instructions from CC Subjective Date/time seen: 02/05/20 13:25 Interval history: Patient is a 79 yo F with history of CHF, COPD, HTN, and reported previous GI bleed thought to be due to hemorrhoids who is here for evaluation for BRBPR. Patient states no blood in her BM this afternoon, again today. Complains of mild right later leg pain from her mid thigh to lower leg. States it is off/on since falling about 2.5 weeks ago. Pain is tolerable, but asking for Tylenol. No other complaints. Tolerating diet. Denies f/c/s, headaches, dizziness/lightheadedness particularly with standing/ambulating, changes in v/h, cp/palpitations, sob/cough, n/v/d/c, abd pain, dysuria, hematuria, cloudy urine, calf pain/swelling. Review of Systems Review of Systems: All systems reviewed & are unremarkable except as noted in HPI and below Exam Narrative: Exam Narrative: Patient sitting upright in chair at time of visit Const: General: cooperative, comfortable, no acute distress, well developed, alert and ill appearing chronically Nutritional Appearance: well nourished and obese Orientation/consciousness: patient oriented x3 HENMT: Head: normocephalic and atraumatic General nose exam: Normal nares present Face and sinus: face symmetric Mouth: Yes moist mucous membranes Eyes: G
[2020-02-05 13:51] VITALS: BP 107/55; PULSE 67; RESP 16; TEMP 36.2; O2SAT 98
--- NOTE | 2020-02-05 15:35 | PM.DS ---
DS: Admitting Diagnosis Admitting Diagnosis Admitting Diagnosis: Gastrointestinal hemorrhage, unspecified DS: Discharge Diagnosis Discharge Diagnosis (1) Acute lower GI bleeding: Code(s): K92.2 - Gastrointestinal hemorrhage, unspecified Status: Acute Assessment and Plan: Patient states her bleeding stopped yesterday; she did not notice blood in stool/melena yesterday and again this morning. H&H stable at 14.7/45.9 today. GI consulted and appreciate input. She has had a history of internal & external hemorrhoids with apparent bleed last year. She did notice abd cramping with her bleeding episode; CT abd/pelv ordered by GI service, but patient refused; no recurrent pain/cramping. She is not on any a/c at this time. VSS/afebrile Will do H&H in 1 week Okay for discharge from GI standpoint F/u with her established GI specialist or Dr. Pandya; will likely need another colonoscopy in future given her past medical history Medically stable for discharge; awaiting placement - see below (2) Anxiety and depression: Code(s): F41.9 - Anxiety disorder, unspecified; F32.9 - Major depressive disorder, single episode, unspecified Status: Chronic Assessment and Plan: No acute issues Continue trazodone. (3) Rosacea: Code(s): L71.9 - Rosacea, unspecified Status: Chronic Assessment and Plan: Not not currently having any issues. She has been on Flagyl in the past. (4) COPD (chronic obstructive pulmonary disease): Code(s): J44.9 - Chronic obstructive pulmonary disease, unspecified Status: Chronic Assessment and Plan: Not currently having any issues. Continue with Singulair. (5) CHF (congestive heart failure): Code(s): I50.9 - Heart failure, unspecified Status: Chronic Assessment and Plan: No acute issues. Appears euvolemic Continue with Lasix and losartan. (6) Lymphoma: Code(s): C85.90 - Non-Hodgkin lymphoma, unspecified, unspecified site Status: Acute Assessment and Plan: Reported as being in remission f/u with oncologist (7) Discharge planning issues: Code(s): Z02.9 - Encounter for administrative examinations, unspecified Status: Acute Assessment and Plan: Patient unable to return to [facility] due to insurance/insurance auth issues per CC. CC following and at this moment patient cannot be discharged Discharge today or tomorrow if able to return to SNF vs home with HH Will await further instructions from CC DS: Summary Hospital Course Reason for hospitalization: GI blood loss; BRBPR Hospital Course: Patient is a 79 yo F with history of previous GI bleed, lymphoma, CHF, and COPD among other comorbid conditions who presented to the ER on 02/01 from [facility] with complaints of large amount of bright red blood and clots per rectum starting about an hour before arrival. Patient was found to be stool occult positive while in the ED. Acute GI blood loss of concern. Patient admitted under this setting. Please see H&P for further details. Presenting VS: Temp Pulse Resp BP Pulse Ox 98.3 F 78 18 132/65 100 02/02/20 13:37 02/02/20 13:37 02/02/20 13:37 02/02/20 13:37 02/02/20 13:37 Presenting Pertinent labs: H&H 13.5/41.9 (lowered to 11.3/35.4 on 02/02, but hali to 14.7/45.9 by discharge on 02/04. CBC, chemistry otherwise unremarkable. Stool occult positive in ED Micro: Stool culture/studies negative Imaging: none ECG: none Patient was admitted to the hospitalist service for further evaluation for acute GI bleed; Dr. Pandya (GI) was consulted for further input. By admission, patient's symptoms of BRBPR had stopped. As above, hemoglobin and
[2020-02-05 19:37] VITALS: BP 135/57; PULSE 70; RESP 18; TEMP 36.7; O2SAT 100
== END 2020-02-05 20:15 ==
LOC: ANHED 14:59 → ANH3MED 15:21
PROVIDERS: Nurse Practitioner; Admitting Provider Internal Medicine; Emergency Provider Emergency Medicine; PCP Family Medicine; Visit Provider Physician Assistant
DX: K92.2 Gastrointestinal hemorrhage, unspecified (principal); R63.4 Abnormal weight loss; Z90.49 Acquired absence of other specified parts of digestive tract; I11.0 Hypertensive heart disease with heart failure; I50.9 Heart failure, unspecified; J44.9 Chronic obstructive pulmonary disease, unspecified; F41.8 Other specified anxiety disorders; M81.0 Age-related osteoporosis without current pathological fracture; L71.9 Rosacea, unspecified; Z85.72 Personal history of non-Hodgkin lymphomas
CPT/HCPCS: 36415; 80048; 80053; 82274; 83735; 84443; 85014; 85018; 85025; 85610; 85730; 86140; 86850; 86900; 86901; 87045; 87046; 87324; 87427; 89055; 96360; 96361; 97116; 97161; 97165; 99285; A9270; G0378; J7120

== ENCOUNTER 2020-06-01 11:13 | Emergency (ER) | payer MEDICARE, SELFPAY ==
--- NOTE | ~2020-06-01 | XR_ITS ---
EXAMINATION: XR chest 2V DATE: 06/01/2020 12:16 INDICATION: Edema TECHNIQUE: AP and lateral views of the chest are obtained. COMPARISON: 01/16/2020 FINDINGS: The lungs are free of acute opacities. There is no pleural effusion or pneumothorax. The ca rdiomediastinal silhouette is normal. There is mild thoracic spondylosis. IMPRESSION: 1. No acute cardiopulmonary abnormality. Reviewed, dictated and finalized at location A.
--- NOTE | 2020-06-01 11:20 | PC.NURSE ---
Aaron Flores number [phone]
[2020-06-01 11:34] VITALS: BP 144/72; PULSE 68; RESP 18; TEMP 36.8; O2SAT 99
--- NOTE | 2020-06-01 11:48 | ECG_ITS ---
Measurements Intervals [place] Rate: 65 P: 83 [place]: 161 QRS: -9 QRSD: 74 T: 57 QT: 388 QTc: 404 Interpretive Statements SINUS RHYTHM EARLY PRECORDIAL R/S TRANSITION BASELINE ARTIFACT- I, III, AVR, AVL, AVF BORDERLINE ECG Electronically Signed On 06-01-2020 13:52:56 CDT by Lazaro Green D.O.
[2020-06-01 11:56] LABS: Basophils Absolute Auto 0.1 K/mm3 (0.0-0.1); Basophils Percent Auto 0.9 % (0.2-1.2); Eosinophils Absolute Auto 0.3 K/mm3 (0-0.3); Eosinophils Percent Auto 3.9 % (0-4.4); Hematocrit 41.2 % (37.0-47.0); Hemoglobin 13.4 g/dL (12.0-15.0); Immature Granulocyte Absolute 0.03 K/mm3 (0.00-0.031); Immature Granulocyte Percent A 0.4 % (0-0.5); Lymphocytes Absolute Auto 1.12 K/mm3 (0.9-3.2); Mean Corpuscular HGB Conc 32.5 g/dl (32-36); Mean Corpuscular Hemoglobin 28.7 pg (26-34); Mean Corpuscular Volume 88.2 fl (80-100); Monocytes Absolute Auto 0.7 K/mm3 (0.1-0.6); Monocytes Percent Auto 9.1 % (2.6-8.5); Neutrophils Absolute Auto 5.8 K/mm3 (1.3-6.7); Neutrophils Percent Auto 71.7 % (45.5-73.1); Platelet Count Result 235 k/mm3 (150-375); Red Blood Count 4.67 M/mm3 (4.2-5.4); Red Cell Distribution Width 14.1 % (11.5-14.5)
[2020-06-01 12:07] LABS: Partial Thromboplastin Time 34.9 SECONDS (22.3-36.8)
[2020-06-01 12:11] LABS: Anion Gap 10 mmol/L (8-16); Blood Urea Nitrogen 20 mg/dL (7-17); Calcium 9.4 mg/dL (8.4-10.2); Carbon Dioxide 26 mmol/L (22-30); Chloride 104 mmol/L (98-107); Estimated CRCL calculation 51 ml/min; Estimated Glomerular Filt Rate > 60; Glucose 93 mg/dL (65-105); Sodium 140 mmol/L (137-145)
[2020-06-01 12:23] LABS: NT Pro B Type Natriuretic Pept 725 PG/ML (5-100); Troponin I < 0.012 ng/mL (0.000-0.034)
[2020-06-01] MEDS: FUROSEMIDE INJ 40 MG/4 ML VIAL IV PUSH (12:29)
[2020-06-01 12:49] VITALS: BP 138/78; PULSE 76; RESP 18; O2SAT 99
--- NOTE | 2020-06-01 13:26 | ED.GENADULT ---
HPI - General Adult General Chief complaint: Extremity Problem,Nontraumatic Stated complaint: bilateral feet swelling Time Seen by Provider: 06/01/20 11:55 Source: patient Mode of arrival: ambulatory Limitations: no limitations History of Present Illness HPI narrative: Patient 29-year-old female who presents with lower extremity swelling for 1 month patient is unsure as to whether or not she has had this issue before patient denies pain shortness of breath upper respiratory symptoms presents from assisted living in no distress notes that she is followed by primary care for this and has been compliant with her medications Related Data Home Medications Medication Instructions Recorded Confirmed montelukast 10 mg PO DAILY 01/16/20 02/02/20 propranolol 60 mg PO BID 01/16/20 02/02/20 trazodone 50 mg PO HS 01/16/20 02/02/20 furosemide 20 mg PO DAILY 02/02/20 02/02/20 losartan [Cozaar] 25 mg PO DAILY 02/02/20 02/02/20 multivitamin [Daily Multi-Vitamin] 1 tablet PO DAILY 02/02/20 02/02/20 Allergies Allergy/AdvReac Type Severity Reaction Status Date / Time Cephalosporins Allergy Mild Swelling Verified 01/16/20 08:11 cefaclor Allergy Unknown Unknown Verified 01/16/20 08:11 Penicillins Allergy Unknown Unknown Verified 01/16/20 08:11 Sulfa (Sulfonamide Allergy Unknown Unknown Verified 01/16/20 08:11 Antibiotics) Review of Systems Review of Systems: All systems reviewed & are unremarkable except as noted in HPI and below PMFSH Past Medical History Medical History Abnormal colonoscopy May of last year Anxiety and depression CHF (congestive heart failure) COPD (chronic obstructive pulmonary disease) Hypertension 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 History of esophagogastroduodenoscopy (EGD) Approximately 1 year Hx of cholecystectomy 2004 Family History Family History Father Hypertension Cerebrovascular accident Diabetes mellitus Heart disease Mother Chronic obstructive pulmonary disease Hypertension Parkinson's disease Sibling Non Hodgkin's lymphoma Social History Social History Social History: The patient has 2 children. Her son Josiah is still the durable power attorney recruiter for healthcare. Patient desires to be a full code. Patient is retired from working for daycare. Lifelong nonsmoker. Very rarely drinks. No marijuana or illicit drugs. She lives at home by herself and is attempting to get in to financial legal assistant living. Smoking status: Never smoker Alcohol intake: never Substance use: never Spiritual care concerns: No Exam Narrative: Exam Narrative: GENERAL: Well-appearing, obese, and in no acute distress. HEAD: Normocephalic, atraumatic. EYES: PERRLA and EOMI. ENT: Nares clear, no rhinorrhea or epistaxis. Mucous membranes moist. CHEST: Clear to auscultation. No respiratory distress. No wheezes rales or rhonchi HEART: Regular rate and rhythm. No murmur heard. Normal peripheral pulses. ABDOMEN: Soft, nontender, nondistended EXTREMITIES: Normal range of motion. 2+ edema lower extremities. SKIN: Warm, dry, no rash. NEURO: No focal deficits. Alert and oriented x3. Cranial nerves II through XII grossly intact PSYCH: Normal mood and affect. Course Course Emergency Course: Patient in the room in no distress given diuretic is currently on a diuretic will follow with primary care for this is aware of discussion and recomm
[2020-06-01 13:58] VITALS: BP 144/68; PULSE 78; RESP 18; O2SAT 98
== END 2020-06-01 14:02 ==
PROVIDERS: Emergency Provider Emergency Medicine; PCP Family Medicine
DX: R60.0 Localized edema (principal); F41.9 Anxiety disorder, unspecified; F32.9 Major depressive disorder, single episode, unspecified; J44.9 Chronic obstructive pulmonary disease, unspecified; I10 Essential (primary) hypertension; Z85.72 Personal history of non-Hodgkin lymphomas; M81.0 Age-related osteoporosis without current pathological fracture; Z98.42 Cataract extraction status, left eye; Z98.41 Cataract extraction status, right eye; Z90.49 Acquired absence of other specified parts of digestive tract
CPT/HCPCS: 36415; 71046; 80048; 83880; 84484; 85025; 85610; 85730; 93005; 96374; 99284; J1940

== ENCOUNTER 2020-08-31 10:40 | Outpatient (CLI) | payer MEDICARE, SELFPAY ==
[2020-08-31 11:30] LABS: Basophils Absolute Auto 0.1 K/mm3 (0.0-0.1); Basophils Percent Auto 0.5 % (0.2-1.2); Eosinophils Absolute Auto 0.1 K/mm3 (0-0.3); Eosinophils Percent Auto 0.7 % (0-4.4); Hematocrit 42.8 % (37.0-47.0); Hemoglobin 13.8 g/dL (12.0-15.0); Immature Granulocyte Absolute 0.07 K/mm3 (0.00-0.031); Immature Granulocyte Percent A 0.6 % (0-0.5); Lymphocytes Absolute Auto 1.39 K/mm3 (0.9-3.2); Lymphocytes Percent Auto 11.6 % (18.3-44.2); Mean Corpuscular HGB Conc 32.2 g/dl (32-36); Mean Corpuscular Hemoglobin 28.7 pg (26-34); Mean Platelet Volume 8.9 fl (7.4-10.4); Monocytes Absolute Auto 1.4 K/mm3 (0.1-0.6); Monocytes Percent Auto 11.4 % (2.6-8.5); Neutrophils Absolute Auto 9.1 K/mm3 (1.3-6.7); Neutrophils Percent Auto 75.2 % (45.5-73.1); Platelet Count Result 306 k/mm3 (150-375); Red Blood Count 4.81 M/mm3 (4.2-5.4); Red Cell Distribution Width 13.5 % (11.5-14.5)
[2020-08-31 11:46] LABS: Anion Gap 4 mmol/L (8-16); Blood Urea Nitrogen 24 mg/dL (7-17); Calcium 9.1 mg/dL (8.4-10.2); Carbon Dioxide 30 mmol/L (22-30); Chloride 104 mmol/L (98-107); Cholesterol 163 mg/dL (0-200); Estimated Glomerular Filt Rate 60; Glucose 112 mg/dL (65-105); HDL Direct 59 mg/dL; Potassium 3.8 mmol/L (3.4-5.0); Sodium 138 mmol/L (137-145); Triglycerides 151 mg/dL (<150)
[2020-08-31 11:57] LABS: LDL Cholesterol Direct 69 mg/dL
== END 2020-08-31 10:41 | disposition home or self-care (01) ==
PROVIDERS: PCP Family Medicine; Visit Provider Nurse Practitioner Adult Health
DX: E78.5 Hyperlipidemia, unspecified (principal); R60.0 Localized edema; D64.9 Anemia, unspecified
CPT/HCPCS: 36415; 80048; 80061; 85025

== ENCOUNTER 2020-12-02 16:04 | Outpatient (CLI) | payer MEDICARE, SELFPAY ==
[2020-12-02 16:45] LABS: Potassium 4.6 mmol/L (3.4-5.0)
[2020-12-02 16:48] LABS: Anion Gap 6 mmol/L (8-16); Blood Urea Nitrogen 17 mg/dL (7-17); Calcium 9.1 mg/dL (8.4-10.2); Carbon Dioxide 28 mmol/L (22-30); Chloride 104 mmol/L (98-107); Estimated Glomerular Filt Rate 60; Glucose 105 mg/dL (65-105); Sodium 138 mmol/L (137-145)
== END 2020-12-02 16:05 | disposition home or self-care (01) ==
PROVIDERS: PCP Family Medicine
DX: I50.9 Heart failure, unspecified (principal)
CPT/HCPCS: 36415; 80048

== ENCOUNTER 2021-01-02 17:44 | Emergency (ER) | payer MEDICARE, SELFPAY ==
--- NOTE | ~2021-01-02 | XR_ITS ---
XR knee LT min 4V DATE: 01/02/2021 18:40 INDICATION: Left knee pain for 4 days TECHNIQUE: 4 views including crosstable lateral COMPARISON: None FINDINGS: There is osteoarthritis, particularly severe at the medial compartment, with severe loss of joint space and prominent periarticular spurring and some eburnation of the apposing medial femoral condyle and medial tibial plateau. Otherwise there is diffuse osteopenia. No fracture or dislocation or joint effusion is evident. IMPRESSION: Severe osteoarthritis at the medial compartment Osteopenia Reviewed, dictated and finalized at location A.
[2021-01-02 17:54] VITALS: BP 123/92; PULSE 105; RESP 18; TEMP 36.3; O2SAT 96
--- NOTE | 2021-01-02 18:42 | ED.LOWEXIN ---
HPI - Extremity Injury (Lower) General Chief Complaint: Extremity Injury, Lower Stated Complaint: left knee pain Time Seen by Provider: 01/02/21 18:07 Source: patient Mode of arrival: wheelchair Limitations: no limitations History of Present Illness HPI Narrative: Patient is an 80 year old female who presents with left knee pain. She reports pain after getting off the commode approximately 4 days ago. She denies other injuries. She reports increased pain with standing. She reports a history of CHF and currently has edema to bilateral lower extremities. She denies chest pain or sob, she denies all other complaints. Related Data Home Medications Medication Instructions Recorded Confirmed montelukast 10 mg PO DAILY 01/16/20 02/02/20 propranolol 60 mg PO BID 01/16/20 02/02/20 trazodone 50 mg PO HS 01/16/20 02/02/20 furosemide 20 mg PO DAILY 02/02/20 02/02/20 losartan [Cozaar] 25 mg PO DAILY 02/02/20 02/02/20 multivitamin [Daily Multi-Vitamin] 1 tablet PO DAILY 02/02/20 02/02/20 Allergies Allergy/AdvReac Type Severity Reaction Status Date / Time Cephalosporins Allergy Mild Swelling Verified 01/02/21 18:20 cefaclor Allergy Unknown Unknown Verified 01/02/21 18:20 Penicillins Allergy Unknown Unknown Verified 01/02/21 18:20 Sulfa (Sulfonamide Allergy Unknown Unknown Verified 01/02/21 18:20 Antibiotics) Review of Systems Review of Systems: Narrative: CONSTITUTIONAL: Denies fever, chills, or sweats. EYES: Denies visual changes, redness, or discharge. ENT: Denies rhinorrhea, congestion, sore throat, or otalgia. CARDIOVASCULAR: Denies chest pain, palpitations, or edema. RESPIRATORY: Denies cough or dyspnea. GASTROINTESTINAL: Denies abdominal pain, nausea, vomiting, or diarrhea. GENITOURINARY: Denies dysuria or hematuria. SKIN: Denies rash or itching. MUSCULOSKELETAL: Reports left knee pain NEUROLOGIC: Denies headache, numbness, dizziness, or weakness. PSYCHIATRIC: Denies anxiety or depression. 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 History of esophagogastroduodenoscopy (EGD) Approximately 1 year Hx of cholecystectomy 2004 Family History Family History Father Hypertension Cerebrovascular accident Diabetes mellitus Heart disease Mother Chronic obstructive pulmonary disease Hypertension Parkinson's disease Sibling Non Hodgkin's lymphoma Social History Social History Social History: The patient has 2 children. Her son Josiah is still the durable power bank teller for healthcare. Patient desires to be a full code. Patient is retired from working for daycare. Lifelong nonsmoker. Very rarely drinks. No marijuana or illicit drugs. She lives at home by herself and is attempting to get in to therapist's assistant living. Smoking status: Never smoker Alcohol intake: never Substance use: never Gender identity (if verbalized by the patient): Female Spiritual care concerns: No Exam Narrative: Exam Narrative: GENERAL: Well-appearing, well-nourished, and in no acute distress. HEAD: Normocephalic, atraumatic. EYES: EOMI. No redness or drainage. Conjunctiva are normal. ENT: Mucous membranes pink and moist. CHEST: No respiratory distress. HEART: Regular rat
[2021-01-02 20:13] VITALS: BP 123/92; PULSE 105; RESP 18; TEMP 36.3; O2SAT 96
== END 2021-01-02 19:45 | disposition home or self-care (01) ==
PROVIDERS: Emergency Provider Nurse Practitioner; PCP Family Medicine
DX: M17.12 Unilateral primary osteoarthritis, left knee (principal); I50.9 Heart failure, unspecified; F41.9 Anxiety disorder, unspecified; F32.9 Major depressive disorder, single episode, unspecified; J44.9 Chronic obstructive pulmonary disease, unspecified; I11.0 Hypertensive heart disease with heart failure; M81.0 Age-related osteoporosis without current pathological fracture; Z85.72 Personal history of non-Hodgkin lymphomas; Z98.42 Cataract extraction status, left eye; Z98.41 Cataract extraction status, right eye; Z87.19 Personal history of other diseases of the digestive system; M85.88 Other specified disorders of bone density and structure, other site
CPT/HCPCS: 73564; 99283

== ENCOUNTER 2021-01-04 08:55 | Outpatient (CLI) | payer MEDICARE, SELFPAY ==
[2021-01-04 09:37] LABS: Chloride 104 mmol/L (98-107); Potassium 4.1 mmol/L (3.4-5.0); Sodium 142 mmol/L (137-145)
[2021-01-04 09:38] LABS: Anion Gap 10 mmol/L (8-16); Blood Urea Nitrogen 15 mg/dL (7-17); Calcium 9.6 mg/dL (8.4-10.2); Carbon Dioxide 28 mmol/L (22-30); Estimated Glomerular Filt Rate 53; Glucose 110 mg/dL (65-105)
== END 2021-01-04 08:56 | disposition home or self-care (01) ==
PROVIDERS: PCP Family Medicine; Visit Provider Internal Medicine Cardiovascular Disease
DX: I50.33 Acute on chronic diastolic (congestive) heart failure (principal)
CPT/HCPCS: 36415; 80048

== ENCOUNTER 2021-03-08 14:03 | Emergency (ER) | payer MEDICARE, SELFPAY ==
--- NOTE | ~2021-03-08 | XR_ITS ---
EXAMINATION: XR hip LT 2V w AP pelvis DATE: 03/08/2021 15:39 INDICATION: Left hip pain. Fall. TECHNIQUE: An anteroposterior view pelvis and 2 views of left hip were obtained. COMPARISON: Pelvis and right hip radiographs 01/16/2020 FINDINGS: There is dextroscoliosis and moderate spondylosis of lumbar spine. No fracture. Osteitis pu bis is noted. There is mild osteoarthritis of the hips. IMPRESSION: 1. Mild osteoarthritis of the hips. Reviewed, dictated and finalized at location A.
--- NOTE | ~2021-03-08 | XR_ITS ---
EXAMINATION: XR chest 1V portable DATE: 03/08/2021 17:48 INDICATION: Fall. TECHNIQUE: A single frontal view of the chest was obtained. COMPARISON: Chest 2 views 06/01/2020 FINDINGS: The patient is rotated to her right. There is mild atelectasis in left lower lung zone. No pleural effusion or pneumothorax. The heart size is normal. IMPRESSION: 1. Mild atelectasis in left lower lung zone. Reviewed, dictated and finalized at location A.
--- NOTE | ~2021-03-08 | XR_ITS ---
EXAMINATION: XR knee LT 3V DATE: 03/08/2021 15:38 INDICATION: Left knee injury and pain. TECHNIQUE: 3 views of left knee were obtained. COMPARISON: Left knee radiographs 01/02/2021 FINDINGS: Bone alignment is normal. No fracture. There is severe osteoarthritis of medial compartment and mild osteoarthritis of lateral and patellofemoral compartments. No knee joint effusion. IMPRESSION: 1. Severe left knee osteoarthritis. Reviewed, dictated and finalized at location A.
--- NOTE | ~2021-03-08 | CT_ITS ---
EXAMINATION: CT brain wo con DATE: 03/08/2021 15:22 INDICATION: Head injury. TECHNIQUE: Computed tomography (CT) of the head was performed without intravenous contrast. The mA wa s adjusted according to patient size. Iterative reconstruction technique was employed. The dose-lengt h product was 605.33 mGy-cm. COMPARISON: Head CT 01/16/2020 FINDINGS: There is no intracranial hemorrhage, acute infarction, or abnormal intracranial mass lesion . The ventricles are normal in size. There is mild mucosal thickening in the ethmoid sinuses. There a re likely changes of ocular lens replacement surgeries. The mastoid air cells are normal. IMPRESSION: 1. Normal brain. Reviewed, dictated and finalized at location A. IMPRESSION: 1. Normal brain.
[2021-03-08 13:58] VITALS: BP 123/84; PULSE 96; RESP 18; TEMP 36.2; O2SAT 97
--- NOTE | 2021-03-08 15:20 | ED.FALL ---
HPI - Fall General Chief Complaint: Fall Stated Complaint: FALL Time Seen by Provider: 03/08/21 14:11 Source: patient Mode of arrival: EMS Limitations: clinical condition History of Present Illness HPI Narrative: 80-year-old female Patient arrives via EMS after a fall at her assisted living She does not remember all the details super clearly but does remember being in the bathroom and thinks that she tripped and fell into the shower She does not recall losing consciousness Her only current complaints are some pain of her upper forehead and some soreness of her left leg mostly around her kneecap She is not complaining of being ill recently, and did not have any symptoms prior to falling to the best of her recollection Related Data Home Medications Medication Instructions Recorded Confirmed montelukast 10 mg PO DAILY 01/16/20 02/02/20 propranolol 60 mg PO BID 01/16/20 02/02/20 trazodone 50 mg PO HS 01/16/20 02/02/20 furosemide 20 mg PO DAILY 02/02/20 02/02/20 losartan [Cozaar] 25 mg PO DAILY 02/02/20 02/02/20 multivitamin [Daily Multi-Vitamin] 1 tablet PO DAILY 02/02/20 02/02/20 Allergies Allergy/AdvReac Type Severity Reaction Status Date / Time Cephalosporins Allergy Mild Swelling Verified 03/08/21 14:09 cefaclor Allergy Unknown Unknown Verified 03/08/21 14:09 Penicillins Allergy Unknown Unknown Verified 03/08/21 14:09 Sulfa (Sulfonamide Allergy Unknown Unknown Verified 03/08/21 14:09 Antibiotics) Review of Systems Review of Systems: All systems reviewed & are unremarkable except as noted in HPI and below Constitutional: Constitutional: Reports no additional constitutional complaints, Denies chills, Denies fever(s) and Denies headache(s) Eyes: Eyes: Reports no additional eye complaints and Denies change in vision ENT: Denies headache(s) and Denies sore throat Cardiovascular: Cardiovascular: Denies chest pain and Denies dyspnea Respiratory: Respiratory: Denies cough and Denies dyspnea Gastrointestinal: Gastrointestinal: Denies abdominal pain, Denies diarrhea and Denies vomiting Genitourinary: Genitourinary: Denies urinary frequency and Denies dysuria Musculoskeletal: Musculoskeletal: Denies back pain, Reports myalgias, Denies deformity, Reports arthralgias, Denies joint swelling and Denies numbness Integumentary/Breasts: Skin/Breast: Denies rash and Denies wounds Neurologic: Denies headache(s), Denies focal weakness and Denies numbness Psychiatric: Psychiatric: Reports no additional psychiatric complaints Endocrine: Endocrine: Reports no additional endocrine complaints Hematologic/Lymphatic: Hematologic/Lymphatic: Reports no additional hematologic/lymphatic complaints Allergic/Immunologic: Allergic/Immunologic: Reports no additional allergic/immunologic complaints [facility] Past Medical History Medical History Abnormal colonoscopy May of last year Anxiety and depression CHF (congestive heart failure) COPD (chronic obstructive pulmonary disease) Hypertension 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 History of esophagogastroduodenoscopy (EGD) Approximately 1 year Hx of cholecystectomy 2004 Family History Family History Father Hypertension Cerebrovascular accident Diabetes mellitus Heart disease Mother Chronic obstructive pulmonary disease Hypertension Parkinson's disease Sibling Non Hodgkin's lymphoma Social History Social History (Reviewed 01/02/21 @ 18:47 by Jose
[2021-03-08 16:16] VITALS: BP 103/67; PULSE 78; RESP 19; O2SAT 97
[2021-03-08 16:34] LABS: Basophils Absolute Auto 0.1 K/mm3 (0.0-0.1); Basophils Percent Auto 0.6 % (0.2-1.2); Eosinophils Absolute Auto 0.1 K/mm3 (0-0.3); Eosinophils Percent Auto 0.8 % (0-4.4); Hematocrit 41.2 % (37.0-47.0); Hemoglobin 12.9 g/dL (12.0-15.0); Immature Granulocyte Absolute 0.05 K/mm3 (0.00-0.031); Immature Granulocyte Percent A 0.4 % (0-0.5); Lymphocytes Absolute Auto 0.68 K/mm3 (0.9-3.2); Lymphocytes Percent Auto 5.5 % (18.3-44.2); Mean Corpuscular HGB Conc 31.3 g/dl (32-36); Mean Corpuscular Hemoglobin 28.2 pg (26-34); Mean Corpuscular Volume 90.2 fl (80-100); Mean Platelet Volume 9.5 fl (7.4-10.4); Monocytes Absolute Auto 1.2 K/mm3 (0.1-0.6); Monocytes Percent Auto 9.3 % (2.6-8.5); Neutrophils Absolute Auto 10.4 K/mm3 (1.3-6.7); Neutrophils Percent Auto 83.4 % (45.5-73.1); Platelet Count Result 203 k/mm3 (150-375); Red Blood Count 4.57 M/mm3 (4.2-5.4); Red Cell Distribution Width 14.6 % (11.5-14.5); White Blood Count 12.5 K/mm3 (4.5-10.0)
[2021-03-08 16:35] LABS: Add Urine Microscopic? NO; Appearance Urine Clear (Clear); Bilirubin Urine Negative (Negative); Blood Urine Negative (Negative); Color Urine Yellow (Yellow); Glucose Urine UA Negative (Negative); Ketones Urine Negative (Negative); Leukocyte Esterase Ur Negative LEU/UL (Negative); Nitrate Urine Negative (Negative); Protein Urine Negative (Negative); Specific Grav Ur 1.008 (1.001-1.035); Urobilinogen Urine Negative mg/dL (<2.0)
[2021-03-08 16:46] LABS: Anion Gap 7 mmol/L (8-16); Blood Urea Nitrogen 17 mg/dL (7-17); Carbon Dioxide 29 mmol/L (22-30); Chloride 99 mmol/L (98-107); Estimated CRCL calculation 46 ml/min; Estimated Glomerular Filt Rate 53; Glucose 113 mg/dL (65-110); Potassium 3.5 mmol/L (3.4-5.0); Sodium 135 mmol/L (137-145)
[2021-03-08 18:29] VITALS: BP 109/63; PULSE 59; RESP 20; O2SAT 97
[2021-03-08 20:16] VITALS: BP 122/71; PULSE 94; RESP 18; TEMP 36.4; O2SAT 97
--- NOTE | 2021-03-08 20:19 | PC.NURSE ---
Patient tells me that she thought she may need to use the bed may[place] but was not sure. When I asked her if she would like me to put her on the bed [place] she told me no. I told her it is not a problem for me to put her on the mayfield. Patient states she did not need to use the bed mayfield. She also requests that her door remain closed. Call light with the patient. Side rails up. Patient informed to use call light if she needs anything.
== END 2021-03-08 22:30 ==
PROVIDERS: Emergency Provider Emergency Medicine
DX: S00.83XA Contusion of other part of head, initial encounter (principal); M16.0 Bilateral primary osteoarthritis of hip; M17.12 Unilateral primary osteoarthritis, left knee; I50.9 Heart failure, unspecified; J44.9 Chronic obstructive pulmonary disease, unspecified; Z85.72 Personal history of non-Hodgkin lymphomas; M81.0 Age-related osteoporosis without current pathological fracture; Z98.42 Cataract extraction status, left eye; Z98.41 Cataract extraction status, right eye; F41.9 Anxiety disorder, unspecified; F32.9 Major depressive disorder, single episode, unspecified; W01.0XXA Fall on same level from slipping, tripping and stumbling without subsequent striking against object, initial encounter
CPT/HCPCS: 36415; 70450; 71045; 73502; 73562; 80048; 81003; 85025; 99284

== ENCOUNTER 2021-05-31 10:13 | Outpatient (CLI) | payer MEDICARE, SELFPAY ==
[2021-05-31 10:52] LABS: Anion Gap 8 mmol/L (8-16); Blood Urea Nitrogen 17 mg/dL (7-17); Calcium 9.9 mg/dL (8.4-10.2); Carbon Dioxide 33 mmol/L (22-30); Chloride 102 mmol/L (98-107); Estimated Glomerular Filt Rate 60; Glucose 113 mg/dL (65-110); Potassium 3.8 mmol/L (3.4-5.0); Sodium 143 mmol/L (137-145)
== END 2021-05-31 10:14 | disposition home or self-care (01) ==
LOC: ANHLAB 10:17
PROVIDERS: Visit Provider Internal Medicine Cardiovascular Disease
DX: I48.19 Other persistent atrial fibrillation (principal); I50.32 Chronic diastolic (congestive) heart failure; I10 Essential (primary) hypertension
CPT/HCPCS: 36415; 80048

== ENCOUNTER 2021-07-14 21:02 | Inpatient (IN) | payer MEDICARE, SELFPAY ==
--- NOTE | ~2021-07-14 | XR_ITS ---
EXAMINATION: XR chest 1V portable INDICATION: Pulmonary edema TECHNIQUE: Portable AP chest at 0558 hours COMPARISON: 03/08/2021 FINDINGS: The heart size is normal for technique. There is a mild diffuse interstitial pattern. There are minimal airspace opacities of the left mid and lower lung zones. No pleural effusion or pneumoth orax is identified. IMPRESSION: 1. Interstitial and airspace opacities, consistent with pulmonary edema and/or pneumonia. Reviewed, dictated and finalized at location A. [employer] SYSTEMS PROGRAMMER
[2021-07-14 21:05] VITALS: BP 104/61; PULSE 104; RESP 17; TEMP 36.7; O2SAT 100
--- NOTE | 2021-07-14 22:13 | ED.GENADULT ---
HPI - General Adult General Chief complaint: Nausea/Vomiting/Diarrhea Stated complaint: diarrhea, abdominal cramps Time Seen by Provider: 07/14/21 21:41 History of Present Illness HPI narrative: 81-year-old female noted to the emergency department for evaluation diarrhea, and intermittent hallucinations. Patient denies any abdominal pain. Patient states she is not currently having hallucinations. Patient denies any falls or injuries. Related Data Home Medications Medication Instructions Recorded Confirmed montelukast 10 mg PO DAILY 01/16/20 02/02/20 propranolol 60 mg PO BID 01/16/20 02/02/20 trazodone 50 mg PO HS 01/16/20 02/02/20 furosemide 20 mg PO DAILY 02/02/20 02/02/20 losartan [Cozaar] 25 mg PO DAILY 02/02/20 02/02/20 multivitamin [Daily Multi-Vitamin] 1 tablet PO DAILY 02/02/20 02/02/20 Allergies Allergy/AdvReac Type Severity Reaction Status Date / Time Cephalosporins Allergy Mild Swelling Verified 07/14/21 21:16 cefaclor Allergy Unknown Unknown Verified 07/14/21 21:16 Penicillins Allergy Unknown Unknown Verified 07/14/21 21:16 Sulfa (Sulfonamide Allergy Unknown Unknown Verified 07/14/21 21:16 Antibiotics) Review of Systems Review of Systems: CONSTITUTIONAL: Denies fever, chills, or sweats. EYES: Denies visual changes, redness, or discharge. ENT: Denies rhinorrhea, congestion, sore throat, or otalgia. CARDIOVASCULAR: Denies chest pain, palpitations, or edema. RESPIRATORY: Denies cough or dyspnea. GASTROINTESTINAL: Does report nausea vomiting and diarrhea GENITOURINARY: Denies dysuria or hematuria. SKIN: Denies rash or itching. MUSCULOSKELETAL: Denies back pain, joint pain, or myalgia. NEUROLOGIC: Denies headache, numbness, or weakness. PSYCHIATRIC: Denies anxiety or depression. 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 History of esophagogastroduodenoscopy (EGD) Approximately 1 year Hx of cholecystectomy 2004 Family History Family History Father Hypertension Cerebrovascular accident Diabetes mellitus Heart disease Mother Chronic obstructive pulmonary disease Hypertension Parkinson's disease Sibling Non Hodgkin's lymphoma Social History Social History Social History: The patient has 2 children. Her son Josiah is still the durable power traffic law attorney for healthcare. Patient desires to be a full code. Patient is retired from working for daycare. Lifelong nonsmoker. Very rarely drinks. No marijuana or illicit drugs. She lives at home by herself and is attempting to get in to assistant city attorney living. Smoking status: Never smoker Alcohol intake: never Substance use: never Gender identity (if verbalized by the patient): Female Spiritual care concerns: No Exam Narrative: APPEARANCE: Well appearing, no pain in distress, well-nourished. Head normocephalic atraumtaic. EYES: PERRLA/EOMI, conjunctivae very clear. NOSE: Normal no drainage EARS:TMS clear Catherine Vela, with good light reflex. THROAT: Pharynx clear, no exudate. NECK: Supple. No adenopathy, no masses. RESPIRATORY: Airway patent, clear etiology respirations nonl
[2021-07-14 22:30] LABS: Basophils Absolute Auto 0.1 K/mm3 (0.0-0.1); Basophils Percent Auto 0.6 % (0.2-1.2); Eosinophils Absolute Auto 0.1 K/mm3 (0-0.3); Hematocrit 41.2 % (37.0-47.0); Hemoglobin 13.8 g/dL (12.0-15.0); Immature Granulocyte Absolute 0.06 K/mm3 (0.00-0.031); Immature Granulocyte Percent A 0.5 % (0-0.5); Lymphocytes Absolute Auto 0.68 K/mm3 (0.9-3.2); Lymphocytes Percent Auto 5.3 % (18.3-44.2); Mean Corpuscular HGB Conc 33.5 g/dl (32-36); Mean Corpuscular Hemoglobin 29.9 pg (26-34); Mean Corpuscular Volume 89.2 fl (80-100); Mean Platelet Volume 8.8 fl (7.4-10.4); Monocytes Absolute Auto 1.1 K/mm3 (0.1-0.6); Monocytes Percent Auto 8.9 % (2.6-8.5); Neutrophils Absolute Auto 10.7 K/mm3 (1.3-6.7); Neutrophils Percent Auto 83.7 % (45.5-73.1); Platelet Count Result 269 k/mm3 (150-375); Red Blood Count 4.62 M/mm3 (4.2-5.4); Red Cell Distribution Width 14.2 % (11.5-14.5); White Blood Count 12.8 K/mm3 (4.5-10.0)
[2021-07-14 22:51] LABS: Add Urine Microscopic? YES; Appearance Urine Cloudy (Clear); Bacteria Urine 4+ /hpf; Bilirubin Urine Negative (Negative); Blood Urine 3+ (Negative); Color Urine Amber (Yellow); Glucose Urine UA Negative (Negative); Ketones Urine 1+ mg/dL (Negative); Leukocyte Esterase Ur 1+ LEU/UL (Negative); Mucus Urine Rare /lpf; Nitrate Urine Negative (Negative); Protein Urine Negative (Negative); RBC Urine 21-50 /hpf (0-2); Specific Grav Ur 1.011 (1.001-1.035); Squamous Epithelial Cell Urine Many /hpf (Few); WBC Urine 21-30 /hpf
[2021-07-14 23:13] LABS: Alanine Aminotransferase 32 U/L (4-35); Albumin Level 3.9 g/dL (3.5-5.1); Alkaline Phosphatase 106 U/L (38-126); Anion Gap 14 mmol/L (8-16); Aspartate Amino Transferase 54 U/L (14-36); Bilirubin,Total 2.2 mg/dL (0.2-1.3); Blood Urea Nitrogen 19 mg/dL (7-17); Calcium 9.2 mg/dL (8.4-10.2); Carbon Dioxide 26 mmol/L (22-30); Chloride 96 mmol/L (98-107); Estimated Glomerular Filt Rate > 60; Glucose 106 mg/dL (65-110); Potassium 2.9 mmol/L (3.4-5.0); Sodium 136 mmol/L (137-145)
[2021-07-14] MEDS: POTASSIUM CHLORIDE 20 MEQ PACKET (FOR LIQUID) 40 MEQ PO (23:46)
--- NOTE | 2021-07-15 00:38 | PM.IMHP ---
H&P: HPI History of Present Illness Date/Time: 07/15/21 00:38 Chief Complaint: Nausea and vomiting Narrative: This is an 81-year-old female with past medical history significant for hypertension, chronic bilateral lower extremity lymphedema, lymphoma, congestive heart failure. Patient presented to the emergency room for evaluation after she has been having nausea, vomiting and diarrhea to a lesser extent for the last couple of days or so having chills as well. Her lymphoma is on remission and she has been in her usual state of health up until couple of days ago she denies any pain or burning with urination. Patient was found to have in the urinalysis numerous wbc's rest of chemistry panel and CBC was essentially nonrevealing CBC had mild leukocytosis ptosis at 12,000. Patient has been started on antibiotics and had to its in the emergency room now she has been admitted to regular medical floor for further evaluation management and treatment. Review of Systems Review of Systems: Nausea vomiting and diarrhea for the last 2 days. Constitutional: Constitutional: Reports chills, Reports malaise, Reports night sweats and Reports poor appetite Eyes: Eyes: Denies change in vision ENT: Denies dysphagia, Denies nasal congestion, Denies nasal discharge and Denies nasal obstruction Cardiovascular: Cardiovascular: Reports leg edema, Denies lightheadedness, Denies radiating jaw, neck or arm pain, Denies palpitations, Denies dyspnea on exertion, Denies orthopnea and Denies paroxysmal nocturnal dyspnea Respiratory: Respiratory: Denies cough and Denies excessive phlegm production Gastrointestinal: Gastrointestinal: Denies abdominal pain, Denies dyspepsia, Denies heartburn, Reports diarrhea, Reports nausea and Reports vomiting Genitourinary: Genitourinary: Denies dysuria and Denies flank pain Musculoskeletal: Musculoskeletal: Denies myalgias and Denies arthralgias Integumentary/Breasts: Skin/Breast: Denies rash Neurologic: Denies focal weakness and Denies Sensory deficit (Neuro) Psychiatric: Psychiatric: Reports no additional psychiatric complaints and Reports as per HPI Endocrine: Endocrine: Denies polyphagia, Denies polydipsia, Denies polyuria and Denies palpitations Hematologic/Lymphatic: Hematologic/Lymphatic: Reports no additional hematologic/lymphatic complaints and Reports as per HPI Allergic/Immunologic: Allergic/Immunologic: Reports no additional allergic/immunologic complaints and Reports as per HPI [facility] Past Medical History Medical History Abnormal colonoscopy November of last year Anxiety and depression CHF (congestive heart failure) COPD (chronic obstructive pulmonary disease) Hypertension 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 History of esophagogastroduodenoscopy (EGD) Approximately 1 year Hx of cholecystectomy 2004 Family History Family History Father Hypertension Cerebrovascular accident Diabetes mellitus Heart disease Mother Chronic obstructive pulmonary disease Hypertension Parkinson's disease Sibling Non Hodgkin's lymphoma Social History Social History Social History: The patient has 2 children. Her son Josiah is still the durable power loans officer for healthcare. Patient desires to be a full code. Patient is retired from working for daycare. Lifelong nonsmoker. Very rarely drinks. No marijuana or illicit drugs. She lives at home by herself an
[2021-07-15 01:20] VITALS: BMI 32.9
--- NOTE | 2021-07-15 01:20 | ADMGEN ---
This patient, Dionne Flores, was admitted to [facility] Surg Room 330-02. Patient/family oriented to hospital policies and general routines including ID bracelet, bed and alarms, visiting hours, pain management, procedures, bathroom and other care routines, personal items, smoking policy, room service/diet, and visiting hours. Information on how to activate the Rapid Response Team has been discussed. Patient/Family are encouraged to report perceived risks to care and to ask questions if they do not understand what they are told or what they should do.
[2021-07-15] MEDS: LACTATED RINGERS 1,000 ML 999 ML IV CONT (01:34)
[2021-07-15 06:00] VITALS: BP 105/54; PULSE 101; RESP 20; TEMP 36.2; O2SAT 98
--- NOTE | 2021-07-15 10:20 | PM.IMPN ---
Progress Note: A&P Assessment and Plan (1) Acute UTI: Code(s): N39.0 - Urinary tract infection, site not specified Status: Acute (2) Increased nausea and vomiting: Code(s): R11.2 - Nausea with vomiting, unspecified Status: Acute Assessment and Plan: Likely secondary to urinary tract infection Trial of clear liquids if tolerated advanced Supportive care Fluid resuscitation (3) Lymphoma: Code(s): C85.90 - Non-Hodgkin lymphoma, unspecified, unspecified site Status: Acute Assessment and Plan: On remission Follow-up in outpatient setting (4) CHF (congestive heart failure): Code(s): I50.9 - Heart failure, unspecified Status: Chronic Assessment and Plan: Patient appears to be euvolemic however patient has bilateral lower extremity chronic lymphedema on physical exam and clinically does not appear to be volume overloaded (5) COPD (chronic obstructive pulmonary disease): Code(s): J44.9 - Chronic obstructive pulmonary disease, unspecified Status: Chronic Assessment and Plan: Not actively wheezing Continue home meds Continue to monitor (6) Anxiety and depression: Code(s): F41.9 - Anxiety disorder, unspecified; F32.9 - Major depressive disorder, single episode, unspecified Status: Chronic Assessment and Plan: Continue home meds (7) Abnormal urinalysis: Code(s): R82.90 - Unspecified abnormal findings in urine Status: Acute Assessment and Plan: Patient with multiple allergies Continue levofloxacin Await cultures Supportive care (8) Dementia: Code(s): F03.90 - Unspecified dementia without behavioral disturbance Status: Acute Assessment and Plan: Patient stated that she is hallucinating She uses resources to get the answer to A&O questions No treatment From the memory care center Time Spent With Patient Time with patient: 25 - 35 minutes Subjective Date/time seen: 07/15/21 1020 Interval history: Date/Time: 07/15/21 00:38 Narrative: This is an 81-year-old female with past medical history significant for hypertension, chronic bilateral lower extremity lymphedema, lymphoma, congestive heart failure. Patient presented to the emergency room for evaluation after she has been having nausea, vomiting and diarrhea to a lesser extent for the last couple of days or so having chills as well. Her lymphoma is on remission and she has been in her usual state of health up until couple of days ago she denies any pain or burning with urination. Patient was found to have in the urinalysis numerous wbc's rest of chemistry panel and CBC was essentially nonrevealing CBC had mild leukocytosis ptosis at 12,000. Patient has been started on antibiotics and had to its in the emergency room now she has been admitted to regular medical floor for further evaluation management and treatment. Date/Time 07/15/21 1020 Patient is laying in bed. She stated that she is seeing things and hallucinating. She was having some diarrhea and abdominal pain, however she is feeling a lot better today. She does also state that she is unsure why she is weak and confused. Her UA does look like it could be infectious at this time. She is eating poor and she knows that she should probably drink more water. She denies chest pain, shortness of breath, nausea, vomiting, sweats, fevers or chills. Review of Systems Review of Systems: All systems reviewed & are unremarkable except as noted in HPI and below Exam Const: General: cooperative, comfortable, no acute distress, well developed, alert, awake and ill appearing chronically Nutritional Appearance: overweight Orientation/consciousness: patient oriented x3 Limitations: no limitations HENMT: Head: normal to inspection, normocephalic and atraumatic Ears: hearing grossly normal bilaterally General nose exam: Normal external nose present Face and sinus: normal facial exam
[2021-07-15 14:00] VITALS: BP 98/56; PULSE 119; RESP 16; TEMP 36.4; O2SAT 94
[2021-07-15 22:00] VITALS: BP 106/46; PULSE 130; RESP 16; TEMP 36.9; O2SAT 96
[2021-07-16 06:00] VITALS: BP 112/51; PULSE 110; RESP 18; TEMP 36.8; O2SAT 95
[2021-07-16 07:57] LABS: Basophils Absolute Auto 0.1 K/mm3 (0.0-0.1); Basophils Percent Auto 0.6 % (0.2-1.2); Eosinophils Absolute Auto 0.1 K/mm3 (0-0.3); Eosinophils Percent Auto 1.3 % (0-4.4); Hematocrit 38.3 % (37.0-47.0); Hemoglobin 12.5 g/dL (12.0-15.0); Immature Granulocyte Absolute 0.06 K/mm3 (0.00-0.031); Immature Granulocyte Percent A 0.7 % (0-0.5); Lymphocytes Absolute Auto 0.75 K/mm3 (0.9-3.2); Lymphocytes Percent Auto 8.3 % (18.3-44.2); Mean Corpuscular HGB Conc 32.6 g/dl (32-36); Mean Corpuscular Hemoglobin 29.5 pg (26-34); Mean Corpuscular Volume 90.3 fl (80-100); Mean Platelet Volume 9.1 fl (7.4-10.4); Monocytes Absolute Auto 1.3 K/mm3 (0.1-0.6); Monocytes Percent Auto 13.8 % (2.6-8.5); Neutrophils Absolute Auto 6.8 K/mm3 (1.3-6.7); Neutrophils Percent Auto 75.3 % (45.5-73.1); Platelet Count Result 231 k/mm3 (150-375); Red Blood Count 4.24 M/mm3 (4.2-5.4); Red Cell Distribution Width 14.4 % (11.5-14.5)
[2021-07-16 08:18] LABS: Alanine Aminotransferase 26 U/L (4-35); Albumin Level 3.1 g/dL (3.5-5.1); Alkaline Phosphatase 90 U/L (38-126); Anion Gap 8 mmol/L (8-16); Aspartate Amino Transferase 37 U/L (14-36); Blood Urea Nitrogen 11 mg/dL (7-17); Calcium 8.9 mg/dL (8.4-10.2); Carbon Dioxide 26 mmol/L (22-30); Chloride 102 mmol/L (98-107); Estimated CRCL calculation 51 ml/min; Estimated Glomerular Filt Rate > 60; Glucose 104 mg/dL (65-110); Magnesium 1.6 mg/dL (1.6-2.3); Sodium 136 mmol/L (137-145)
--- NOTE | 2021-07-16 13:20 | PM.IMPN ---
Progress Note: A&P Assessment and Plan (1) Abnormal urinalysis: Code(s): R82.90 - Unspecified abnormal findings in urine Status: Acute Assessment and Plan: Patient with multiple allergies Continue levofloxacin Await cultures which is still pending Supportive care (2) Lymphoma: Code(s): C85.90 - Non-Hodgkin lymphoma, unspecified, unspecified site Status: Acute Assessment and Plan: On remission Follow-up in outpatient setting (3) CHF (congestive heart failure): Code(s): I50.9 - Heart failure, unspecified Status: Chronic Assessment and Plan: Chronic BLE lymphedema on physical exam She is diminished Wonder if there is a component of overload, but not acute exacerbation Will order echo for in the am Lasix 40mg IV BID Trend output (4) COPD (chronic obstructive pulmonary disease): Code(s): J44.9 - Chronic obstructive pulmonary disease, unspecified Status: Chronic Assessment and Plan: Not actively wheezing Continue home meds Continue to monitor (5) Anxiety and depression: Code(s): F41.9 - Anxiety disorder, unspecified; F32.9 - Major depressive disorder, single episode, unspecified Status: Chronic Assessment and Plan: Continue home meds (6) Dementia: Code(s): F03.90 - Unspecified dementia without behavioral disturbance Status: Acute Assessment and Plan: Patient stated that she is hallucinating She uses resources to get the answer to A&O questions No treatment From the memory care center (7) Tachycardia: Code(s): R00.0 - Tachycardia, unspecified Status: Acute Assessment and Plan: HR is 100-140s unsustained Denies chest pain or palpitations EKG was SR Sounds like there could be a murmur Restated Propanolol One time dose of metoprolol IV 2.5mg Time Spent With Patient Time with patient: Greater than 35 minutes Subjective Date/time seen: 07/16/21 13:20 Interval history: Date/Time: 07/15/21 00:38 Narrative: This is an 81-year-old female with past medical history significant for hypertension, chronic bilateral lower extremity lymphedema, lymphoma, congestive heart failure. Patient presented to the emergency room for evaluation after she has been having nausea, vomiting and diarrhea to a lesser extent for the last couple of days or so having chills as well. Her lymphoma is on remission and she has been in her usual state of health up until couple of days ago she denies any pain or burning with urination. Patient was found to have in the urinalysis numerous wbc's rest of chemistry panel and CBC was essentially nonrevealing CBC had mild leukocytosis ptosis at 12,000. Patient has been started on antibiotics and had to its in the emergency room now she has been admitted to regular medical floor for further evaluation management and treatment. Date/Time 07/15/21 1020 Patient is laying in bed. She stated that she is seeing things and hallucinating. She was having some diarrhea and abdominal pain, however she is feeling a lot better today. She does also state that she is unsure why she is weak and confused. Her UA does look like it could be infectious at this time. She is eating poor and she knows that she should probably drink more water. She denies chest pain, shortness of breath, nausea, vomiting, sweats, fevers or chills. Date/Time 07/16/21 1320 Patient is laying in bed. She really does not have any complaints at this time. She is eating and doing well. She does have pain in her legs where all the swelling is. She stated that she is feeling ok. He HR is high. Patient denies chest pain, shortness of breath, palpitations, nausea, vomiting, diarrhea, constipation, weakness, fatigue. Review of Systems Review of Systems: All systems reviewed & are unremarkable except as noted in HPI and below Exam Const: General: cooperative, comfort
[2021-07-16 14:00] VITALS: BP 116/94; PULSE 109; RESP 16; TEMP 37; O2SAT 96
[2021-07-16] MEDS: METOPROLOL TARTRATE INJ 5 MG/5 ML VIAL 2.5 MG IV PUSH (15:04)
[2021-07-16] MEDS: FUROSEMIDE INJ 40 MG/4 ML VIAL IV PUSH (18:20)
[2021-07-16 21:33] VITALS: PULSE 109
[2021-07-16] MEDS: traZODone HCL 50 MG TABLET PO (21:33)
[2021-07-16] MEDS: PROPRANOLOL HCL 60 MG CAPSULE CR PO (21:33)
[2021-07-16 22:00] VITALS: BP 133/77; PULSE 87; RESP 16; TEMP 36.5; O2SAT 93
[2021-07-17] VITALS (7 sets, daily range): BP systolic 99–138; BP diastolic 69–85; PULSE 53–110; RESP 14–17; TEMP 35.9–36.3; O2SAT 94–97
--- NOTE | 2021-07-17 | ECHO_ITS ---
Patient Info Name: Dionne Flores Age: 81 years : 1940 Gender: Female Ht: 65 in Wt: 197 lbs BSA: 2.06 m2 HR: 141 bpm BP: 99 / 75 mmHg Heart Rhythm: Atrial Fibrillation Technical Quality: Good Exam Date: 07/17/2021 4:10 PM Exam Location: [facility] Pulmonary Patient Status: Inpatient Admit Date: 07/16/2021 Staff Ordering Physician: Yaw Pruitt Die Engraver: DIEGO Attending Provider: Simon Lozada MD Referring Physician: Edmond ALY; Exam Type: CA echo doppler color flow Study Info Indications - FLUID STATUS Complete two-dimensional, color flow and Doppler transthoracic echocardiogram is performed. Summary 1. Complete two-dimensional, color flow and Doppler transthoracic echocardiogram is performed. 2. Left ventricular chamber dimension is normal. 3. Left ventricular systolic function is normal, estimated at 65-70%. 4. There is mildly increased left ventricular wall thickness. 5. The left ventricular diastolic function is indeterminate. 6. Left atrial chamber dimension is moderately enlarged. 7. Right atrial chamber dimension is moderately enlarged. 8. There is moderate tricuspid valve regurgitation. 9. Mild pulmonary hypertension, estimated pulmonary arterial systolic pressure is 41 mmHg. 10. There is moderate mitral valve regurgitation. Left Ventricle Left ventricular chamber dimension is normal. Left ventricular systolic function is normal, estimated at 65-70%. There is mildly increased left ventricular wall thickness. The left ventricular diastolic function is indeterminate. Right Ventricle Right ventricular chamber dimension is normal. Right ventricular systolic function is normal. Left Atria Left atrial chamber dimension is moderately enlarged. Right Atria Right atrial chamber dimension is moderately enlarged. Aortic Valve The aortic valve is probable trileaflet. There is no aortic valve stenosis. There is no aortic valve regurgitation. Pulmonic Valve The pulmonic valve is normal. There is trace pulmonic regurgitation. Mitral Valve The mitral valve has normal leaflets. There is moderate mitral valve regurgitation. The mitral valve annulus is mildly calcified. Tricuspid Valve The tricuspid valve leaflets are normal. There is moderate tricuspid valve regurgitation. Mild pulmonary hypertension, estimated pulmonary arterial systolic pressure is 41 mmHg. Pericardium/Pleural The pericardium appears normal. There is no pericardial effusion. Inferior Vena Cava Dilated inferior vena cava with >50% collapse upon inspiration consistent with elevated right atrial pressure, 10 mmHg. Aorta The aortic root size at the sinus of Valsalva is normal. The prox ascending aorta size is normal. There is mild aortic atherosclerosis. Left Ventricular Outflow Tract Name Value Normal LVOT 2D LVOT Diameter 2.0 cm LVOT Doppler LVOT Peak Gradient 3 mmHg LVOT Mean Gradient 1 mmHg LVOT VTI 16 cm LVOT VTI/AV VTI Ratio 0.8 LVOT S
[2021-07-17 07:11] LABS: Basophils Absolute Auto 0.1 K/mm3 (0.0-0.1); Basophils Percent Auto 0.7 % (0.2-1.2); Eosinophils Absolute Auto 0.1 K/mm3 (0-0.3); Eosinophils Percent Auto 1.6 % (0-4.4); Hematocrit 41.8 % (37.0-47.0); Hemoglobin 13.5 g/dL (12.0-15.0); Immature Granulocyte Absolute 0.06 K/mm3 (0.00-0.031); Immature Granulocyte Percent A 0.7 % (0-0.5); Lymphocytes Absolute Auto 1.02 K/mm3 (0.9-3.2); Lymphocytes Percent Auto 12.4 % (18.3-44.2); Mean Corpuscular HGB Conc 32.3 g/dl (32-36); Mean Corpuscular Hemoglobin 28.8 pg (26-34); Mean Corpuscular Volume 89.1 fl (80-100); Monocytes Absolute Auto 1.2 K/mm3 (0.1-0.6); Monocytes Percent Auto 14.4 % (2.6-8.5); Neutrophils Absolute Auto 5.8 K/mm3 (1.3-6.7); Neutrophils Percent Auto 70.2 % (45.5-73.1); Platelet Count Result 313 k/mm3 (150-375); Red Blood Count 4.69 M/mm3 (4.2-5.4); Red Cell Distribution Width 14.4 % (11.5-14.5); White Blood Count 8.2 K/mm3 (4.5-10.0)
[2021-07-17 07:28] LABS: NT Pro B Type Natriuretic Pept 6630 pg/mL (5-100)
[2021-07-17 07:29] LABS: Alanine Aminotransferase 29 U/L (4-35); Albumin Level 3.5 g/dL (3.5-5.1); Alkaline Phosphatase 103 U/L (38-126); Anion Gap 11 mmol/L (8-16); Aspartate Amino Transferase 43 U/L (14-36); Bilirubin,Total 0.9 mg/dL (0.2-1.3); Blood Urea Nitrogen 9 mg/dL (7-17); Calcium 9.1 mg/dL (8.4-10.2); Carbon Dioxide 30 mmol/L (22-30); Chloride 99 mmol/L (98-107); Estimated CRCL calculation 51 ml/min; Estimated Glomerular Filt Rate > 60; Glucose 123 mg/dL (65-110); Magnesium 1.5 mg/dL (1.6-2.3); Potassium 2.9 mmol/L (3.4-5.0); Sodium 140 mmol/L (137-145)
[2021-07-17] MEDS: MAGNESIUM SULF 4 GM/WATER100ML 4 GM/100 ML BAG IVPB (08:55)
[2021-07-17] MEDS: MULTIVITAMINS THERAPEUTIC TAB (*BKC) 1 TABLET PO (08:59)
[2021-07-17] MEDS: MONTELUKAST SODIUM 10 MG TABLET PO (08:59)
[2021-07-17] MEDS: PROPRANOLOL HCL 60 MG CAPSULE CR PO ×2 (08:59→21:42)
[2021-07-17] MEDS: LOSARTAN POTASSIUM 25 MG TABLET PO (08:59)
[2021-07-17] MEDS: FUROSEMIDE INJ 40 MG/4 ML VIAL IV PUSH ×2 (09:00→18:30)
[2021-07-17] MEDS: POTASSIUM CHLORIDE 20 MEQ TABLET 40 MEQ PO (09:05)
--- NOTE | 2021-07-17 10:00 | PM.IMPN ---
Progress Note: A&P Assessment and Plan (1) Abnormal urinalysis: Code(s): R82.90 - Unspecified abnormal findings in urine Status: Acute Assessment and Plan: Patient with multiple allergies Continue levofloxacin Await cultures which indicated contamination Supportive care (2) Lymphoma: Code(s): C85.90 - Non-Hodgkin lymphoma, unspecified, unspecified site Status: Acute Assessment and Plan: On remission Follow-up in outpatient setting (3) CHF (congestive heart failure): Code(s): I50.9 - Heart failure, unspecified Status: Chronic Assessment and Plan: Chronic BLE lymphedema on physical exam She is diminished Wonder if there is a component of overload, but not acute exacerbation Will order echo for in the am Lasix 40mg IV BID Trend output (4) COPD (chronic obstructive pulmonary disease): Code(s): J44.9 - Chronic obstructive pulmonary disease, unspecified Status: Chronic Assessment and Plan: Not actively wheezing Continue home meds Continue to monitor (5) Anxiety and depression: Code(s): F41.9 - Anxiety disorder, unspecified; F32.9 - Major depressive disorder, single episode, unspecified Status: Chronic Assessment and Plan: Continue home meds (6) Dementia: Code(s): F03.90 - Unspecified dementia without behavioral disturbance Status: Acute Assessment and Plan: Patient stated that she is hallucinating She uses resources to get the answer to A&O questions No treatment From the memory care center (7) Tachycardia: Code(s): R00.0 - Tachycardia, unspecified Status: Acute Assessment and Plan: HR is 60-80 Seems to be resolved since home medications have been started Denies chest pain or palpitations EKG was SR Sounds like there could be a murmur Restated Propanolol (8) Hypokalemia: Code(s): E87.6 - Hypokalemia Status: Acute Assessment and Plan: Potassium 2.9 today potassium replaced trend potassium replace as indicated (9) Hypomagnesemia: Code(s): E83.42 - Hypomagnesemia Status: Acute Assessment and Plan: magnesium 1.5 replace with 4 g trend labs replace as indicated Subjective Date/time seen: 07/17/21 1000 Interval history: Date/Time: 07/15/21 00:38 Narrative: This is an 81-year-old female with past medical history significant for hypertension, chronic bilateral lower extremity lymphedema, lymphoma, congestive heart failure. Patient presented to the emergency room for evaluation after she has been having nausea, vomiting and diarrhea to a lesser extent for the last couple of days or so having chills as well. Her lymphoma is on remission and she has been in her usual state of health up until couple of days ago she denies any pain or burning with urination. Patient was found to have in the urinalysis numerous wbc's rest of chemistry panel and CBC was essentially nonrevealing CBC had mild leukocytosis ptosis at 12,000. Patient has been started on antibiotics and had to its in the emergency room now she has been admitted to regular medical floor for further evaluation management and treatment. Date/Time 07/15/21 1020 Patient is laying in bed. She stated that she is seeing things and hallucinating. She was having some diarrhea and abdominal pain, however she is feeling a lot better today. She does also state that she is unsure why she is weak and confused. Her UA does look like it could be infectious at this time. She is eating poor and she knows that she should probably drink more water. She denies chest pain, shortness of breath, nausea, vomiting, sweats, fevers or chills. Date/Time 07/16/21 1320 Patient is laying in bed. She really does not have any complaints at this time. She is eating and doing well. She does have pain in
[2021-07-17] MEDS: KCL 40 MEQ/WATER 100 ML 100 ML 25 ML IVPB (10:09)
[2021-07-17] MEDS: traZODone HCL 50 MG TABLET PO (21:42)
[2021-07-18 04:02] VITALS: BP 100/57; PULSE 120; RESP 17; TEMP 36.2; O2SAT 94
[2021-07-18 04:40] VITALS: PULSE 104
[2021-07-18 07:47] LABS: Basophils Absolute Auto 0.1 K/mm3 (0.0-0.1); Basophils Percent Auto 0.7 % (0.2-1.2); Eosinophils Absolute Auto 0.1 K/mm3 (0-0.3); Hematocrit 40.8 % (37.0-47.0); Hemoglobin 13.2 g/dL (12.0-15.0); Immature Granulocyte Absolute 0.08 K/mm3 (0.00-0.031); Immature Granulocyte Percent A 0.8 % (0-0.5); Lymphocytes Absolute Auto 0.81 K/mm3 (0.9-3.2); Lymphocytes Percent Auto 7.8 % (18.3-44.2); Mean Corpuscular HGB Conc 32.4 g/dl (32-36); Mean Corpuscular Hemoglobin 29.6 pg (26-34); Mean Corpuscular Volume 91.5 fl (80-100); Mean Platelet Volume 8.9 fl (7.4-10.4); Monocytes Absolute Auto 1.3 K/mm3 (0.1-0.6); Monocytes Percent Auto 12.8 % (2.6-8.5); Neutrophils Percent Auto 76.9 % (45.5-73.1); Platelet Count Result 262 k/mm3 (150-375); Red Blood Count 4.46 M/mm3 (4.2-5.4); Red Cell Distribution Width 14.5 % (11.5-14.5); White Blood Count 10.4 K/mm3 (4.5-10.0)
[2021-07-18 07:59] LABS: Alanine Aminotransferase 28 U/L (4-35); Albumin Level 3.2 g/dL (3.5-5.1); Alkaline Phosphatase 93 U/L (38-126); Anion Gap 6 mmol/L (8-16); Aspartate Amino Transferase 38 U/L (14-36); Bilirubin,Total 0.9 mg/dL (0.2-1.3); Blood Urea Nitrogen 12 mg/dL (7-17); Calcium 8.7 mg/dL (8.4-10.2); Carbon Dioxide 34 mmol/L (22-30); Chloride 99 mmol/L (98-107); Estimated CRCL calculation 46 ml/min; Estimated Glomerular Filt Rate 60; Glucose 113 mg/dL (65-110); Magnesium 2.1 mg/dL (1.6-2.3); Potassium 3.2 mmol/L (3.4-5.0); Sodium 139 mmol/L (137-145)
[2021-07-18] MEDS: LOSARTAN POTASSIUM 25 MG TABLET PO (09:40)
[2021-07-18] MEDS: MONTELUKAST SODIUM 10 MG TABLET PO (09:40)
[2021-07-18] MEDS: MULTIVITAMINS THERAPEUTIC TAB (*BKC) 1 TABLET PO (09:40)
[2021-07-18 09:46] VITALS: PULSE 47
--- NOTE | 2021-07-18 12:15 | PM.DS ---
DS: Admitting Diagnosis Discharge Date Date of service 07/18/21 1215 Admitting Diagnosis Abnormal urinalysis DS: Discharge Diagnosis Discharge Diagnosis (1) Abnormal urinalysis: Code(s): R82.90 - Unspecified abnormal findings in urine Status: Acute Assessment and Plan: Patient with multiple allergies Continue levofloxacin Await cultures which indicated contamination Supportive care (2) Lymphoma: Code(s): C85.90 - Non-Hodgkin lymphoma, unspecified, unspecified site Status: Acute Assessment and Plan: On remission Follow-up in outpatient setting (3) CHF (congestive heart failure): Code(s): I50.9 - Heart failure, unspecified Status: Chronic Assessment and Plan: Chronic BLE lymphedema on physical exam She is diminished Wonder if there is a component of overload, but not acute exacerbation Will order echo for in the am Lasix 40mg IV BID Trend output (4) COPD (chronic obstructive pulmonary disease): Code(s): J44.9 - Chronic obstructive pulmonary disease, unspecified Status: Chronic Assessment and Plan: Not actively wheezing Continue home meds Continue to monitor (5) Anxiety and depression: Code(s): F41.9 - Anxiety disorder, unspecified; F32.9 - Major depressive disorder, single episode, unspecified Status: Chronic Assessment and Plan: Continue home meds (6) Dementia: Code(s): F03.90 - Unspecified dementia without behavioral disturbance Status: Acute Assessment and Plan: Patient stated that she is hallucinating She uses resources to get the answer to A&O questions No treatment From the memory care center (7) Tachycardia: Code(s): R00.0 - Tachycardia, unspecified Status: Acute Assessment and Plan: HR is 60-80 Seems to be resolved since home medications have been started Denies chest pain or palpitations EKG was SR Sounds like there could be a murmur Restated Propanolol (8) Hypokalemia: Code(s): E87.6 - Hypokalemia Status: Acute Assessment and Plan: Potassium 2.9 today potassium replaced trend potassium replace as indicated (9) Hypomagnesemia: Code(s): E83.42 - Hypomagnesemia Status: Acute Assessment and Plan: magnesium 1.5 replace with 4 g trend labs replace as indicated DS: Summary Hospital Course Hospital Course: patient is an 81-year-old female with a past medical history of CHF, COPD, hypertension, and dementia who presented to the ED with nausea vomiting diarrhea x3 days. Upon admission patient was noted to have a for cloudy urine positive for leukocyte esterase and wbc's. Patient was started on IV Levaquin due to allergies. It was also noted the patient's BNP was 6630. Echo was performed and showed . patient was diuresed with IV Lasix 40 mg b.i.d.. Patient appears to be euvolemic at this time. Chest x-ray does show mild pulmonary edema. Patient was also stated that she was seeing things however that has dissipated she has not been seeing things for the last couple days. Patient is also been exhibiting tachycardia however with her medications pain restarted she was able to maintain her heart rates been in the 50s to 80s. Patient stated that she is feeling better today. Patient denies chest pain, shortness of breath, nausea, vomiting, diarrhea constipation, sweats, fevers, chills. Patient also has a steady gait and is able to walk herself and get herself ready in the bathroom. Patient is denying any urination issues including pain burning or urgency and frequency. Patient did exhibit hypokalemia and hypomagnesia which is secondary to diuresis. Labs were replaced and trend accordingly. Status at Discharge Functional status at discharge: uses cane/walker Overall status at discharge: patient is progr
[2021-07-18 15:02] LABS: EDCOVIDSCREEN Negative (Negative)
[2021-07-18] MEDS: POTASSIUM CHLORIDE 20 MEQ TABLET 40 MEQ PO (17:27)
== END 2021-07-18 18:04 | DRG 641 ==
LOC: ANHED 23:55 → ANH3MEDSUR 07-15 01:33
PROVIDERS: Admitting Provider Internal Medicine; Emergency Provider Emergency Medicine; Visit Provider Nurse Practitioner
DX: E87.6 Hypokalemia (principal); C85.90 Non-Hodgkin lymphoma, unspecified, unspecified site; R82.90 Unspecified abnormal findings in urine; Z20.822 Contact with and (suspected) exposure to COVID-19; I11.0 Hypertensive heart disease with heart failure; R11.2 Nausea with vomiting, unspecified; R19.7 Diarrhea, unspecified; I50.9 Heart failure, unspecified; J44.9 Chronic obstructive pulmonary disease, unspecified; F03.90 Unspecified dementia, unspecified severity, without behavioral disturbance, psychotic disturbance, mood disturbance, and anxiety; E83.42 Hypomagnesemia; R00.0 Tachycardia, unspecified; F41.9 Anxiety disorder, unspecified; F32.9 Major depressive disorder, single episode, unspecified; M81.0 Age-related osteoporosis without current pathological fracture; L71.9 Rosacea, unspecified; I89.0 Lymphedema, not elsewhere classified; Z79.899 Other long term (current) drug therapy; Z88.0 Allergy status to penicillin; Z88.1 Allergy status to other antibiotic agents; Z88.2 Allergy status to sulfonamides; Z98.42 Cataract extraction status, left eye; Z98.41 Cataract extraction status, right eye
CPT/HCPCS: 36415; 71045; 80053; 81001; 83605; 83735; 83880; 85025; 87086; 87088; 87426; 93306; 96361; 96365; 96366; 97161; 97165; 99285; A9270; C9803; G0378; J1940; J1956; J3475; J3480; J7120